=== PATIENT | female | born 1935 | race Caucasian/White ===

== ENCOUNTER 2017-10-11 13:49 | Inpatient (IN) | payer BC ==
[~2017-10-11] VITALS: Ht 154.9 cm; Wt 56.0 kg
--- NOTE | ~2017-10-11 | EKG ---
[place] [address] ELECTROCARDIOGRAM REPORT Name: MICHAEL NAVARRO Room: [address] ADM IN M.R.#: [id number] Admission: 10/11/17 Attend Phys: Cheryl Quinonez MD Discharge: Date of : 37 Report #: [id number] THIS REPORT FOR: //name// [facility] Test Date: 2017-10-13 Test Time: 13:56:45 Pat Name: MICHAEL NAVARRO Department: Room: [address] Gender: F Manager [employer]able [employer]: : 1935 Requested By: Adrian Cook Order Number: [id number] Reading MD: Measurements Intervals [place] Rate: 95 P: MI: QRS: -37 QRSD: 113 T: 3 QT: 374 QTc: 470 Interpretive Statements Atrial fibrillation Incomplete left bundle branch block Low voltage, extremity leads Left ventricular hypertrophy Borderline prolonged QT interval Compared to ECG 10/11/2017 14:51:26 Left bundle-branch block now present Low QRS voltage now present Left ventricular hypertrophy now present Sinus rhythm no longer present ST (T wave) deviation no longer present [email or web address] By: D: [id number] Epiphany Epiphany, /MATILDE
[~2017-10-11 13:49] MED LIST: ASA5UEC PO; ATENOLOL 25 MG25 M1 PO; AZITHROMYCIN 2250 MG PO; BAYER CHEWABLE81 MG PO; CALCIUM + D3 E1 EACH PO; CALCIUM 600 +1 EAC1 PO; CEPHALEXIN; CEPHALEXIN 250250 MG; CEPHALEXIN 500500 M3 PO; FISH OIL 500 M1 EAC1 PO; FLUZONE 2045 MCG/011; HYDROCODON-ACE1 EACH PO; HYDROCODONE PO; LASIX 20 MG TAB20 MG PO; LISINOPRIL5 MG PO; MULTI VITAMIN1 EACH PO; NEURONTIN 300300 M1 PO; OMEPRAZOLE; OMEPRAZOLE 20 MG CAP PO; OSELB75 PO; PNEUMOVAX25 MCG/0.5; QUINU5 PD PO; ROBITUSSIN DM118 ML PO; SIMVASTATIN40 MG PO; TRIAMCINOLONE A80 G2; VICODIN 5-5001 EACH PO
[2017-10-11 13:50] VITALS: BP 129/88
[2017-10-11] MEDS ORDERED: ACCUPRIL10 MG PO (13:56)
[2017-10-11 14:28] LABS: ABSOLUTE LYMPHOCYTES 1.1 thou/uL (0.8-5.3); ABSOLUTE MONOCYTES 0.9 thou/uL (0.0-1.2); ABSOLUTE NEUTROPHILS 7.6 thou/uL (1.6-8.1); BASOPHILS 0.4 %; EOSINOPHILS 0.3 %; HEMATOCRIT 47.5 % (37.0-47.0); HEMOGLOBIN 16.2 gm/dL (12.0-15.0); LYMPHOCYTES 11.2 %; MCH 32.2 pg (26.0-34.0); MCHC 34.1 g/dL (28.0-37.0); MCV 94.4 fL (80.0-100.0); MONOCYTES 9.7 %; MPV 7.7 fl. (7.2-11.1); NUCLEATED RBCS 0 /100WBC; PLATELET COUNT* 195 thou/uL (150-400); POLYS 78.4 %; RBC 5.03 mil/uL (4.20-5.00); RDW-CV 13.6 % (10.5-14.5); WBC 9.6 thou/uL (4.0-11.0)
[2017-10-11 14:40] LABS: ANION GAP 17 mmol/L (7-16); BUN 37 mg/dL (7-18); CALCIUM 10.1 mg/dL (8.5-10.1); CHLORIDE 95 mmol/L (98-107); CO2 22 mmol/L (21-32); GLUCOSE 128 mg/dL (70-99); POTASSIUM 3.7 mmol/L (3.5-5.1); SODIUM 134 mmol/L (136-145)
[2017-10-11 14:46] LABS: ALBUMIN 4.2 g/dL (3.4-5.0); ALKALINE PHOSPHATASE 122 U/L (46-116); LIPASE 336 U/L (73-393); SGOT 26 U/L (15-37); SGPT 18 U/L (30-65); TOTAL BILIRUBIN 1.5 mg/dL (<0.1-1.0); TOTAL PROTEIN 8.4 g/dL (6.4-8.2); TROPONIN-I LEVEL <0.06 ng/mL (<0.06)
[2017-10-11 17:47] VITALS: BP 137/78
[2017-10-11 18:33] VITALS: BP 110/79
--- NOTE | 2017-10-11 18:56 | NUR ---
PT ARRIVED FROM ER AT 1800, ASSISTED TO BED ORIENTED TO SURROUNDINGS VS AND ASSESSMENT STABLE. PT NG TUBE IN PLACE CONTACTED DIAMOND SORTER TO OBTAIN SUCTION. PT DENIED ANY COMPLAINTS. WILL MONITOR.
[2017-10-11 20:00] VITALS: BP 143/94
[2017-10-11 23:33] VITALS: BP 117/83
[2017-10-12 02:42] LABS: URINE BLOOD NEGATIVE (Negative); URINE CLARITY CLEAR; URINE COLOR DARK YELLOW; URINE GLUCOSE-RANDOM NEGATIVE (Negative); URINE KETONES 1+ (Negative); URINE LEUKOCYTES-REFLEX NEGATIVE (Negative); URINE PROTEIN 1+ (Negative); URINE SPECIFIC GRAVITY >= 1.030 (1.005-1.030); URINE UROBILINOGEN 0.2 E.U./dl (0.2-1.0)
[2017-10-12 02:44] LABS: URINE BILIRUBIN 1+ (Negative); URINE NITRITE-REFLEX POSITIVE (Negative)
[2017-10-12 02:45] LABS: ICTOTEST (BILI CONFIRMATORY) Negative (Negative)
[2017-10-12 02:55] LABS: BACTERIA-REFLEX >30 Many /HPF (None Seen); SQUAMOUS 0-3 Few /LPF (0-3); TRANSITIONAL EPITHEL CELL 0-3 Few /LPF (None Seen); URINE RBC 3-10 Few /HPF (0-2); URINE WBC-REFLEX 6-15 Few /HPF (0-5)
[2017-10-12 02:56] LABS: CASTS None Seen /LPF (None Seen); CRYSTALS None Seen /LPF (None Seen); MUCUS 4-6 Moderate strn/LPF (None Seen)
[2017-10-12 05:08] LABS: HEMATOCRIT 44.5 % (37.0-47.0); HEMOGLOBIN 15.1 gm/dL (12.0-15.0); MCH 32.2 pg (26.0-34.0); MCHC 33.9 g/dL (28.0-37.0); MPV 7.8 fl. (7.2-11.1); RBC 4.69 mil/uL (4.20-5.00); RDW-CV 13.5 % (10.5-14.5)
[2017-10-12 05:41] LABS: ALBUMIN 3.7 g/dL (3.4-5.0); CALCIUM 9.1 mg/dL (8.5-10.1); CREATININE 1.1 mg/dL (0.6-1.3); MAGNESIUM 1.8 mg/dL (1.8-2.4); POTASSIUM 3.5 mmol/L (3.5-5.1); TOTAL BILIRUBIN 1.1 mg/dL (<0.1-1.0); TOTAL PROTEIN 7.1 g/dL (6.4-8.2)
--- NOTE | 2017-10-12 05:53 | NUR ---
PATIENT HAS BEEN RESTLESS BUT HAS SLEPT OFF AND ON THROUGHOUT THE NIGHT. NG TUBE IN LEFT NARE TO LOW INTERMITTENT SUCTION WITH DARK COLORED DRAINAGE. PATIENT REMAINS NPO AT THIS TIME. PATIENT HAS BEEN INCONTINENT OF URINE AT NIGHT WHEN SLEEPING. BED LINENS WERE CHANGED AND MORENA CARE PERFORMED. NEW ORDER FROM DR. PEREZ TO HOLD PO MEDS AT THIS TIME D/T LARGE AMOUNT OF DRAINAGE BEING SUCTIONED AT THIS TIME. VSS, ALTHOUGH BP ELEVATED. IV IN LEFT FOREARM-NS @ 75ML/HR. PATIENT INSTRUCTED TO USE CALL LIGHT WHEN NEEDING ASSISTANCE. HOURLY ROUNDS MADE. WILL CONTINUE WITH PLAN OF CARE AND NURSING TO MONITOR.
[2017-10-12 08:00] VITALS: BP 136/80
--- NOTE | 2017-10-12 13:06 | EKG ---
[place] [address] ELECTROCARDIOGRAM REPORT Name: MICHAEL NAVARRO Room: [address] ADM IN .R.#: [id number] Admission: 10/11/17 Attend Phys: Cheryl Quinonez MD Discharge: Date of : 37 Report #: [id number] THIS REPORT FOR: //name// [facility] ED Test Date: 2017-10-11 Test Time: 14:51:26 Pat Name: MICHAEL NAVARRO Department: Room: [facility] Gender: F Investment Representative: : 1935 Requested By: Gerri Zimmer Order Number: [id number] MD: Scott Travis Measurements Intervals [place] Rate: 78 P: 38 TN: 200 QRS: -24 QRSD: 122 T: -11 QT: 446 QTc: 509 Interpretive Statements Sinus rhythm Probable left atrial enlargement nonspecific st changes Compared to ECG 08/07/2017 12:44:20 no change Electronically Signed On 10-12-2017 13:06:14 ACID EXTRACTOR by Scott Travis [email or web address] <ELECTRONICALLY SIGNED> By: Scott Travis MD, [facility] 10/12/17 0200 1451 1451 Scott Travis MD, [facility] /EPI
[2017-10-12 16:00] VITALS: BP 122/86
--- NOTE | 2017-10-12 16:00 | NUR ---
CM SPOKE TO THE PATIENT TO DISCUSS HOME SITUAION, DISCHARGE PLANNING, AND TO INFORM OF THE ROLE OF CM. PATIENT ALERT AND ORIENTED. PATIENT STATES THAT SHE CURRRENTLY RESIDES A [facility] AND IS RECEIVING THERAPY THERE. PATIENT STATES THAT PRIOR TO HER ADMISSION AT [facility] SHE RESIDED AT HOME WITH HER GRANDDAUGHTER. PATIENT USED A CANE OR WALKER AT HOME FOR MOBILITY. PATIENT HAS A HX OF HH WITH [facility]. 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 CM WILL REMAIN AVAILABLE TO ASSIST AND FOLLOW NEEDED.
--- NOTE | 2017-10-12 18:20 | NUR ---
ASSUMED CARE OF PT AT 0730. BEDSIDE REPORT RECIEVED FROM NOC SHIFT NURSE. PT CONTINUES TO BE A&O AND COOPERATIVE. PT HAS HAD NO C/O PAIN OR DISTRESS TODAY. PT VOIDING VIA BEDSIDE COMMODE TODAY AND UP WITH 1 ASSIST. PT HAS BEEN KEPT NPO, VSS. NURSING WILL RIVERA NUE TO MONITOR.
[2017-10-12 20:20] VITALS: BP 122/89
[2017-10-13 00:11] VITALS: BP 134/54
[2017-10-13 04:48] LABS: HEMATOCRIT 41.1 % (37.0-47.0); HEMOGLOBIN 13.9 gm/dL (12.0-15.0); MCH 32.5 pg (26.0-34.0); MCHC 33.9 g/dL (28.0-37.0); MCV 95.8 fL (80.0-100.0); MPV 7.8 fl. (7.2-11.1); RBC 4.29 mil/uL (4.20-5.00); RDW-CV 13.3 % (10.5-14.5); WBC 7.1 thou/uL (4.0-11.0)
--- NOTE | 2017-10-13 05:03 | NUR ---
PATIENT HAS REMAINED ALERT AND ORIENTED X 4 THROUGHOUT THE SHIFT AND RESTING QUIETLY ON HOURLY ROUNDS. PATIENT HAS DENIED ABDOMINAL PAIN OR NAUSEA. NO EMESIS. UP TO BSC WITH ADEQUATE VOIDS. NO BM'S. DOES NOT THINK SHE HAS PASSED ANY GAS. ABDOMEM REMAINS DISTENDED WITH BOWEL SOUNDS PRESENT. VITAL SIGNS STABLE. DR. GILMORE ROUNDED EARLY EVENING. SHE WAS NOT AWARE THAT NGT WAS OUT. VERBAL ORDER TO REPLACE NGT IF PATIENT'S N/V RETURNED. OF THIS WRITING NGT HAS REMAINED OUT. REMAINS NPO. IV FLUIDS PER ORDERS. CONTINUE TO MONITOR. REPEAT ABDOMINAL XRAYS THIS AM HAVE BEEN ORDERED.
[2017-10-13 05:16] LABS: ALBUMIN 3.5 g/dL (3.4-5.0); CALCIUM 8.9 mg/dL (8.5-10.1); CREATININE 0.9 mg/dL (0.6-1.3); POTASSIUM 3.3 mmol/L (3.5-5.1); TOTAL BILIRUBIN 1.1 mg/dL (<0.1-1.0); TOTAL PROTEIN 6.5 g/dL (6.4-8.2)
[2017-10-13 08:33] VITALS: BP 127/79
[2017-10-13 14:35] LABS: CALCIUM 8.4 mg/dL (8.5-10.1); CREATININE 0.9 mg/dL (0.6-1.3); MAGNESIUM 1.7 mg/dL (1.8-2.4)
[2017-10-13 15:30] VITALS: BP 123/64
--- NOTE | 2017-10-13 15:35 | EKG ---
[place] [address] ELECTROCARDIOGRAM REPORT Name: MICHAEL NAVARRO Room: [address] ADM IN .R.#: [id number] Admission: 10/11/17 Attend Phys: Cheryl Quinonez MD Discharge: Date of : 37 Report #: [id number] THIS REPORT FOR: //name// [facility] Test Date: 2017-10-13 Test Time: 13:56:45 Pat Name: MICHAEL NAVARRO Department: Room: [address] Gender: F Top Carrier: : 1935 Requested By: Adrian Cook Order Number: [id number] Radha MD: Scott Travis Measurements Intervals [place] Rate: 95 P: OR: QRS: -37 QRSD: 113 T: 3 QT: 374 QTc: 470 Interpretive Statements Atrial fibrillation Low voltage, extremity leads Borderline prolonged QT interval Compared to ECG 10/11/2017 14:51:26 Low QRS voltage now present Sinus rhythm no longer noted Electronically Signed On 10-13-2017 15:34:58 HAND SEWER SHOES by Scott Travis [email or web address] <ELECTRONICALLY SIGNED> By: Scott Travis MD, FAC 10/13/17 1534 1356 1356 Scott Travis MD, [facility] /EPI
--- NOTE | 2017-10-13 15:38 | NUR ---
ASSUMED CARE OF PATIENT AFTER MORNING REPORT. ALERT AND ORIENTED X4. ASSESSMENT COMPLETED AND IS CHARTED. VSS ON ROOM AIR. PATIENT HAD NO COMPLAINTS OF PAIN OR NAUSEA THIS SHIFT. PATIENT WAS PASSING GAS THEN PROGRESSED TO LIQUID STOOLS. DIET PROGRESSED TO CLEAR LIQUIDS. PATEINT BEGAN DISPLAYING A-FIB HEART RATE AND EKG CONFORMED THIS. PATIENT TRANSFERRED UP TO TELEMETRY UNIT AT 1538. ALL PERSONAL BELONGINGS WENT UPSTAIR WITH PATIENT UPON TRANSFER.
--- NOTE | 2017-10-13 15:56 | NUR ---
RECEIVED REPORT. PT TRANSFERRED TO TELE FOR AFIB. HOWEVER UPON TRANSFER PT IS IN SR WITH PVC. PT ALERT AND ORIENTED X 4. PT ON RA. IVF INFUSING PER ORDERS. PT DENIES ANY COMPLAINTS OF PAIN OR DISCOMFORT. PT DENEIS ANY N/V. PT GIVEN ORAL POTASSIUM AND MAG. PT ORIENTED TO ROOM AND CALL LIGHT. PT COMMUNICATES UNDERSTANDING. CALL LIGHT IS [employer]. WILL CONTINUE TO MONITOR FOR DURAITON OF SHIFT.
--- NOTE | 2017-10-13 18:08 | 2DMMODE ---
[place] [address] 2 D/M-MODE ECHOCARDIOGRAM Name: MICHAEL NAVARRO Room: [address] IN .R.#: [id number] Admission: 10/11/17 Attend Phys: Cheryl Quinonez, Discharge: Date of : 37 Date of Service: 10/13/17 1808 Report #: [id number] THIS REPORT FOR: //name// APPROVED REPORT Study performed: 10/13/2017 17:06:19 EXAM: Comprehensive 2D, Doppler, and color-flow Echocardiogram Patient Location: Bedside BSA: 1.55 HR: 73 bpm BP: 127/79 mmHg Other Information Study Quality: Fair Indications Atrial Fibrillation 2D Dimensions IVSd: 12.19 (7-11mm) LVOT Diam: 20.90 (18-24mm) LVDd: 33.20 mm PWd: 9.98 (7-11mm) Ascending Ao: 30.37 (22-36mm) LVDs: 26.39 (25-40mm) Aortic Root: 25.12 mm Volumes Left Atrial Volume (Systole) LA ESV Index: 32.10 mL/m2 Aortic Valve AoV Peak Charan.: 1.30 m/s AO Peak Gr.: 6.80 mmHg LVOT Max P.92 mmHg AO Mean Gr.: 3.93 mmHg LVOT Mean P.30 mmHg LVOT Max V: 0.85 m/s AO V2 VTI: 22.92 cm LVOT Mean V: 0.52 m/s SHMUEL (VTI): 2.21 cm2 LVOT V1 VTI: 14.79 cm AI [place]: 1.71 m/s2 AI PHT: 738.95 ms Mitral Valve E/A Ratio: 0.87 MV Decel. Time: 277.64 ms MV E Max Charan.: 0.51 m/[place] [address] 2 D/M-MODE ECHOCARDIOGRAM Name: MICHAEL NAVARRO Room: [address] IN [facility]#: [id number] Admission: 10/11/17 Attend Phys: Cheryl Quinonez, Discharge: Date of : 37 Date of Service: 10/13/17 1808 Report #: [id number] MV PHT: 80.52 ms MVA (PHT): 2.73 cm2 TDI E/Lateral E': 8.50 E/Medial E': 10.20 Medial E' Charan.: 0.05 m/s Lateral E' Charan.: 0.06 m/s Pulmonary Valve PV Peak Charan.: 0.97 m/s PV Peak Gr.: 3.76 mmHg Tricuspid Valve RAP Estimate: 5.00 mmHg TR Peak Gr.: 58.17 mmHg RVSP: 63.17 mmHg PA Pressure: 63.17 mmHg Left Ventricle The left ventricle is normal size. There is normal left ventricular wall thickness. Left ventricular systolic function is normal. The left ventricular ejection fraction is within the normal range. LVEF is 50-55%. Grade I - abnormal relaxation pattern. Right Ventricle The right ventricle is normal size. The right ventricular systolic function is normal. Atria Left atrium is mildly dilated. Interatrial septum is not well visualized. The right atrium size is normal. Aortic Valve Aortic valve is calcified. Mild aortic regurgitation. There is no aortic valvular stenosis. Mitral Valve The mitral valve is normal in structure. Trace mitral regurgitation. No evidence of mitral valve stenosis. Tricuspid Valve The tricuspid valve is normal in structure. Mild to moderate tricuspid regurgitation. estimated pulmonary pressure 50 mm Hg Pulmonic Valve The pulmonary valve is normal in structure. [place] [address] 2 D/M-MODE ECHOCARDIOGRAM Name: MICHAEL NAVARRO Room: [address]#: [id number] Admission: 10/11/17 Attend Phys: Cheryl Quinonez, Discharge: Date of : 37 Date of Service: 10/13/17 1808 Report #: [id number] Great Vessels The aortic root is normal in size. IVC is not well visualized. Pericardium There is no pericardial effusion. <Conclusion> LVEF is 50-55%. Aortic valve is calcified. Mild aortic regurgitation. Mild to moderate tricuspid regurgitation. estimated pulmonary pressure 50 mm Hg Left atrium is mildly dilated. <ELECTRONICALLY SIGNED> By: Scott Travis MD, FACC 10/13/171807 07 07 Scott Travis MD, FACC /INF
--- NOTE | 2017-10-13 18:26 | NUR ---
VSS. CARDIAC MONTIORING IN PLACE SR WITH PVC'S. NO AFIB HAS BEEN NOTED. PT REMAINS ON RA. IVF INFUSING PER ORDERS. PT DENIES ANY COMPLAINTS OF PAIN OR DISCOMFORT. PT HAD ONE LOOSE BM THIS EVENING. PT IS UP WITH ASSIST X1 TO BS. PT HAS SOME INCONTINENCE. PT REQUESTS TO WEAR BREIF. PT INFORMED OF PLAN OF CARE. CALLLIGHT IS WITHIN REACH. WILL CONTINUE TO MONTIOR FOR DURATION OF SHFIT.
[2017-10-13 20:00] VITALS: BP 101/64
[2017-10-14] VITALS: BP 102/63
[2017-10-14 03:59] LABS: HEMATOCRIT 36.3 % (37.0-47.0); HEMOGLOBIN 12.3 gm/dL (12.0-15.0); MCH 32.2 pg (26.0-34.0); MCHC 33.9 g/dL (28.0-37.0); MCV 94.9 fL (80.0-100.0); MPV 7.7 fl. (7.2-11.1); RBC 3.82 mil/uL (4.20-5.00); RDW-CV 13.3 % (10.5-14.5); WBC 6.4 thou/uL (4.0-11.0)
[2017-10-14 04:00] VITALS: BP 106/69
[2017-10-14 04:18] LABS: ALBUMIN 2.7 g/dL (3.4-5.0); CALCIUM 8.1 mg/dL (8.5-10.1); CREATININE 0.7 mg/dL (0.6-1.3); MAGNESIUM 1.5 mg/dL (1.8-2.4); POTASSIUM 3.9 mmol/L (3.5-5.1); TOTAL BILIRUBIN 0.8 mg/dL (<0.1-1.0); TOTAL PROTEIN 5.4 g/dL (6.4-8.2)
--- NOTE | 2017-10-14 04:38 | NUR ---
ASSUMED PT CARE AT 1930, PT IS A&OX4, PT IS TRACING NSR ON THE MONITOR, ON RA SATTING MID TO HIGH 90'S, PT DENIES ANY PAIN OR NEEDS AT THIS TIME. PT SLEPT WELL THROUGHOUT THE NIGHT. IVF INFUSING PER MAR. PT IS UP WITH ONE TO THE BSC. PT HAD SEVERAL LOOSE BM'S THIS SHIFT. BED IN LOW POSITION, CALL LIGHT IN REACH, BED ALARM ON, YELLOW ARM BAND AND SOCKS IN PLACE. HOURLY ROUNDING COMPLETED FOR OT SAFETY.
--- NOTE | 2017-10-14 07:25 | NUR ---
CHANGE OF SHIFT, BEDSIDE REPORT GIVEN ASSUMED PATIENT CARE PATIENT SEEN AT BEDSIDE, ASLEEP
[2017-10-14 08:00] VITALS: BP 108/67
[2017-10-14 11:46] VITALS: BP 107/59
[2017-10-14 17:32] VITALS: BP 101/59
--- NOTE | 2017-10-14 18:57 | NUR ---
PATIENT REMAINS A AND O X 4 SB/1ST DEGR LUNGS CTA/DIM/RA SATS MID 90S GOOD APPETITE ABD SOFT/NT TO PALPATE, GOOD BS DIET INCREASED TO FL TODAY AND TOLERATED WELL WILL INCREASE TO REGULAR IN AM MODERATE, LOOSE BM TODAY GOOD UO UP WITH ASSIST TO BSC/CHAIR SCDS BLE WHILE IN BED NO C/O PAIN TODAY IV L FA 20 GA IVF NS AT 75CC/HR CALL LIGHT INSTRUCTION GIVEN AND FOLLOWED BED ALARM ON ABN LABS MAG 1.5, BUN 20 REPLACING MAG IVP. PM SHIFT TO F/U
[2017-10-14 20:00] VITALS: BP 94/57
[2017-10-15] VITALS: BP 94/58
--- NOTE | 2017-10-15 00:59 | NUR ---
RESTING WITHOUT COMPLAINTS. TO ADVANCE DIET IN AM. TOOK PO MEDS WITHOUT DIFFICUTLS. DENIES PAIN OR DISCOMFORT. NO SIGN OF DISTRESS. CONT. WITH CURRENT PLAN OF CARE AT THIS TIME.
[2017-10-15 04:00] VITALS: BP 96/60
[2017-10-15 04:14] LABS: HEMATOCRIT 34.4 % (37.0-47.0); HEMOGLOBIN 11.7 gm/dL (12.0-15.0); MCH 32.3 pg (26.0-34.0); MCHC 33.9 g/dL (28.0-37.0); MCV 95.2 fL (80.0-100.0); MPV 8.3 fl. (7.2-11.1); RBC 3.62 mil/uL (4.20-5.00); RDW-CV 13.5 % (10.5-14.5); WBC 5.5 thou/uL (4.0-11.0)
[2017-10-15 04:18] LABS: CALCIUM 7.9 mg/dL (8.5-10.1); CREATININE 0.7 mg/dL (0.6-1.3); MAGNESIUM 1.7 mg/dL (1.8-2.4); POTASSIUM 4.4 mmol/L (3.5-5.1)
--- NOTE | 2017-10-15 06:06 | NUR ---
PATIENT HAS BEEN AWAKE SINCE 0300 WATCHING TV. STATES TWO DOCTORS CAME IN HER ROOM AND ASKED HER QUESTIONS. TAKING PO WITHOUT DIFFICULTIES. TO ADVANCE DIET FOR BREAKFAST. NO COMPLAINTS. CONT. WITH PLAN OF CARE.
[2017-10-15 08:00] VITALS: BP 97/55
[2017-10-15 12:16] VITALS: BP 108/58
--- NOTE | 2017-10-15 15:00 | CON ---
[address] [address] CONSULTATION Name: RAMONMICHAEL Terry Room: [address] IN M.R.#: [id number] Admission: 10/11/17 Attend Phys: Cheryl Quinonez MD Discharge: Date of : 37 Report #: [id number] THIS REPORT FOR: //name// CC: Cheryl Mcdaniels DO DATE OF SERVICE: 10/13/2017 TYPE OF REPORT: Cardiology consultation. PRIMARY CARE PHYSICIAN: Brittney Mcdaniels D.O. HISTORY OF PRESENT ILLNESS: The patient is an 82-year-old single white female who I was asked to see in the hospital after she was noted to have an abnormal ECG. The patient states she has been followed by Dr. Camilo. She was told in the past had an echocardiogram showed that she had had a previous silent heart attack and that she has a weak heart. She has never had a heart catheterization. She has had a cardiac workup here at [facility]. She actually had a stress test back in 2011 when she was in the hospital here that showed evidence of previous inferior scar, but no reversible ischemia. Echocardiogram at that time showed an ejection fraction 45% with apical hypokinesis. Her last echocardiogram in July of this year showed an ejection fraction of lower limits of normal with aortic sclerosis, mild aortic insufficiency, mild mitral regurgitation, mild tricuspid insufficiency And pulmonary artery pressure 70 mmHg. The patient apparently was admitted here to [place] in July after she fell and broke her hip. She had hip surgery and is now at [facility] where she is undergoing rehabilitation. Unfortunately, the patient recently has had abdominal pain and vomiting. She has had loose stools. She was finally brought to the emergency room 2 days ago. She was felt to have a small-bowel obstruction. General surgery was consulted and they recommended to have medical therapy. The patient's small-bowel obstruction apparently has resolved. On the monitor, she appeared to have an episode of atrial fibrillation. I was asked to see her for further evaluation and treatment. PAST MEDICAL HISTORY: Otherwise significant for appendectomy and hysterectomy. She has a history of hypertension. MEDICATIONS: On admission consisted of Lasix, quinapril, atenolol, omeprazole, simvastatin, aspirin and Neurontin. ALLERGIES: She has no known drug allergies. FAMILY HISTORY: [place] [address] CONSULTATION Name: MICHAEL NAVARRO Terry Room: [address] IN [facility]#: [id number] Admission: 10/11/17 Attend Phys: Cheryl Quinonez MD Discharge: Date of : 37 Report #: [id number] SOCIAL HISTORY: She is , lives in [place]. No smoking or alcohol use. REVIEW OF SYSTEMS: She has had a history of stroke, asthma, peptic ulcer disease, liver disease, kidney disease, cancer and psychiatric illness. She does have arthritis. She wears glasses. PHYSICAL EXAMINATION: GENERAL: Elderly, frail appearing female who was lying in bed. She appeared in no distress. VITAL SIGNS: Showed a blood pressure 120/80, pulse 70 and she is afebrile. HEENT: She was anicteric. Conjunctivae pink. Mucous members appear moist. NECK: Veins nondistended. CHEST: Clear to auscultation. CARDIAC: Regular rate and rhythm. Grade 2 holosystolic murmur at the apex. ABDOMEN: Soft and nontender. EXTREMITIES: Had no edema. Dorsalis pedis pulse 2+ bilaterally. SKIN: Cool and dry. NEUROLOGICAL: Nonfocal. RADIOLOGICAL DATA: Her ECG on admission 2 days ago showed a sinus rhythm and nonspecific T-wave changes. She had an electrocardiogram done this afternoon that appears to show atrial fibrillation with a controlled ventricular response rate and again nonspecific ST-segment changes. She currently appears to be back in the sinus rhythm. Her workup, she had a lab work that included sodium 145, potassium 3.0, BUN 31 and creatinine 0.9. Liver function studies were normal. Troponin 0.06. T4 1.6. White blood cell count 7.1 and hemoglobin 13.9. IMPRESSION AND RECOMMENDATIONS: 1. Paroxysmal atrial fibrillation. I would recommend resuming the patient's beta job and angiotensin-converting enzyme inhibitor. She does not appear to be a very good candidate for anticoagulation. If she has recurrent atrial fibrillation, we would consider antiarrhythmic therapy. 2. Evidence of previous myocardial infarction. No recent angina. 3. Mild cardiomyopathy. The patient has been on a beta job and angiotensin-converting enzyme inhibitor. 4. History of hypertension. 5. Degenerative joint disease. 6. Recent hip fracture. 7. Recent small-bowel obstruction. Appears to resolve. <ELECTRONICALLY SIGNED> By: Scott Travis MD, FACC 10/15/17 1500 1623 [id number] Travis MD, FACC /nt
[2017-10-15 15:35] VITALS: BP 115/68
--- NOTE | 2017-10-15 18:51 | NUR ---
I ASSUMED CARE OF THE PATIENT AT 0700. SHE IS ALERT AND ORIENTED X4. BED IS IN THE LOW LOCKED POSITION AND CALL LIGHT IS IN REACH. BED ALARM IS ON. SHE IS UP WITH ASSIST X1 TO THE BSC. HOURLY ROUNDING WAS COMPLETED. PATIENT NEEDS WERE MET AND PAIN WAS MANAGED. PATIENT IS PROGRESSING TOWARD HER GOALS. SHE LOOKS FORWARD TO DISCHARGE ON MONDAY. MAGNESIUM WAS REPLACED AND LABS WERE REDRAWN. DIET WAS ADVANCED, SKIN IS INTACT. WILL CONTINUE TO MONITOR.
[2017-10-15 20:00] VITALS: BP 126/78
[2017-10-16 00:43] VITALS: BP 155/83
[2017-10-16 04:06] VITALS: BP 137/80
--- NOTE | 2017-10-16 05:30 | NUR ---
PT CARE ASSUMED AFTER REPORT. ASSESSMENT COMPLETE. SR/SB/1ST DEGREE ON MONITOR. IVF INFUSING. UP TO BSC WITH ASSIST. DENIES PAIN. REPORST SHE FEELS BETTER. FALL PRECAUTIONS IN PLACE INCLUDING BED ALARM. CALL LIGHT IN REACH. BED IN LOWEST POSITION. PROGRESSING TOWARDS GOALS.
[2017-10-16 08:35] VITALS: BP 133/73
[2017-10-16 11:59] VITALS: BP 126/69
[2017-10-16 16:49] VITALS: BP 114/63
--- NOTE | 2017-10-16 17:04 | NUR ---
ALERT AND ORIENTED X4. UP WITH ASSIST X1 TO THE COMMODE. IV IS PATENT AND INFUSING. DENIES PAIN AND NAUSEA. PATIENT HAS BEEN TOLERATING DIET THROUGHOUT SHIFT. VSS ON ROOM AIR. HOURLY ROUNDS HAVE BEEN MAINTAINED THROUGHOUT SHIFT. CALL LIGHT IS WITHIN REACH. NURSING WILL CONTINUE TO MONITOR.
[2017-10-16 20:00] VITALS: BP 106/58
[2017-10-17 00:13] VITALS: BP 100/56
[2017-10-17 04:17] VITALS: BP 103/56
--- NOTE | 2017-10-17 05:07 | NUR ---
PT CARE ASSUMED AFTER REPORT. ASSESSMENT COMPLETE. SB/1ST DEGREE ON MONITOR. UP WITH MIN ASSIST TO BEDSIDE COMMODE. DENIES PAIN. IVF INFUSING WELL. FALL PRECAUTIONS IN PLACE INCLUDING BED ALARM. CLL LIGHT IN REACH. BED IN LOWEST POSITION. PROGRESSING TOWARDS GOALS.
--- NOTE | 2017-10-17 08:55 | NUR ---
ORDERS NOTED FOR DC BACK TO [facility]. CALLED AND FAXED DC ORDER TO M[facility]. THEY WILL NEED PT/OT NOTES IN ORDER TO OBTAIN AUTH FOR [facility]. CHINO TO COME OVER TO DISCUSS WITH PT SHE MAY HAVE COPAYS. ORDER IN FOR PT/OT. DISCUSSED WITH DONALD ORELLANA
[2017-10-17 09:00] VITALS: BP 96/46
--- NOTE | 2017-10-17 09:00 | NUR ---
ASSUMED PT. CARE AND RECEIVED REPORT AT 0730. PT A/OX4, VSS, MONITOR ON TRACING SB. PT. DENIES CURRENT PAIN/SOB. ON RA @ 98%. FULL ASSESSMENT COMPLETED, REFER TO CHARTING. PT. ANTICIPATES DC, AND STATES SHE FEESL SHE IS READY. PT. SET UP FOR BREAKFAST, CALL LIGHT IN REACH, WILL CONTINUE WITH PLAN OF CARE.
--- NOTE | 2017-10-17 09:23 | NUR ---
[facility] PRIOR AUTH'D THRU MEDICAID FOR 15MG BID X21 DAYS AND THEN 20MG DAILIY FOR 6 MONTHS. CALLED INTO [employer] [phone] AND COPAY IS $2.00 SHOULD BE FILLED AND READY FOR PT. DISCUSSED WITH MATTHEW/PATIENT SERVICE SPECIALIST
[2017-10-17 11:59] VITALS: BP 97/53
[2017-10-17 16:44] VITALS: BP 101/58
--- NOTE | 2017-10-17 18:01 | NUR ---
PT. STABLE THROUGH OUT SHIFT. WORKED WITH THERAPY AND UP TO CHAIR FOR APPROX 1 HOUR. PT. DAUGHTER HERE AND SET UP PAYMENT WITH [facility] FOR INSURANCE COPAY. ANTICIPATE INSURANCE AUTH. TOMORROW. PT. STATES FROM THE [facility] HER FAMILY HAS FOUND A PLACE AT THE [facility] FOR HER TO RESIDE POST THERAPY.
[2017-10-17 20:00] VITALS: BP 106/57
[2017-10-18] VITALS (7 sets, daily range): BP systolic 85–123; BP diastolic 43–65
--- NOTE | 2017-10-18 02:38 | NUR ---
SLEEPING. UP TO COMMODE. BM X 1 THIS SHIFT. DENIES PAIN OR DISCOMFORT, NO SIGN OF DISTRESS. D/C TO [facility] IN AM. PATIENT IS ANXIOUS TO GET D/C FROM HOSPITAL. CONT. WITH BED IN LOW POSITION, CALL LIGHT IN REACH. CONT. WITH PLAN OF CARE AT THIS TIME.
--- NOTE | 2017-10-18 10:19 | NUR ---
ASSUMED PT CARE AT 0730, FULL ASSESMENT DONE CHARTED.PT A/O X4, DENIES PAIN, SB/1ST AVB ON THE MONITOR. VSS, BM THIS AM. PT HOPING TO FIND OUT IF SHE CAN GO TO [facility] TODAY. PT UP TO CHAIR FOR BREAKFAST, FALL PRECATUIONS IN PLACE, SHE USES THE CALL LIGHT APPROPRIALTY. WILL CONTINUE WITH PLAN OF CARE.
--- NOTE | 2017-10-18 12:15 | NUR ---
CONTINUE TO WAIT ON INSURANCE AUTH FOR SNF. DISCUSSED WITH MARY/[facility] DELLA FRANCIS. DR CHAVEZ UPDATED
[2017-10-18] MEDS ORDERED: HYDROCODONE-AP1 EAC6 PO (15:06)
[2017-10-18] MEDS ORDERED: SENNA8.6 MG PO (15:09)
[2017-10-18] MEDS ORDERED: MIRALAX17 GM PO (15:09)
[2017-10-18] MEDS ORDERED: CEFUROXIME250 MG PO (15:11)
[2017-10-19] VITALS: BP 94/50
--- NOTE | 2017-10-19 01:37 | NUR ---
PATIENT RESTING WITHOUT COMPLAINTS. UP TO BS WITH SBA. PATIENT WAITING APPROVAL TO RETURN TO [facility] FOR REHAB. HAS BEEN ACCEPTED TO ASSIST LIVING. ALERT AND ORIENTED X 4. DENIES COMPLAINTS. NO SIGN OF DISTRESS OR DISCOMFORT AT THIS TIME.
[2017-10-19 08:00] VITALS: BP 107/70
--- NOTE | 2017-10-19 09:26 | NUR ---
PER [facility], THEY HAVE INSURANCE AUTH AND CAN ACCEPT PT TODAY. ORDERS HAD ALREADY BEEN FAXED. UPDATED DR CHAVEZ. CHART COPIED. PRASADRN HAS NUMBER TO CALL REPORT. MARY SET UP W/C VAN FOR 113. WILL UPDATE PT AND FAMILY
[2017-10-19 09:52] VITALS: BP 107/70
--- NOTE | 2017-10-19 10:13 | NUR ---
ASSUMED CARE OF PT AT 0730. PT RESTING IN BED WAITING FOR BREAKFAST. PT A&0X4. DENIES ANY PAIN OR SHORTNESS OF BREATH AT THIS TIME. PT STATES SHE HOPES INSURANCE AUTHORIZES HER TO RETURN TO [facility] TODAY. PT TRACING SB WITH FIRST DEGREE ON THE INFORMATION MANAGEMENT SPECIALIST. ON RA SAT 96%. PT UP WITH 1 ASSIST BSC. PT HAD BOWEL MOVEMENT THIS AM. IVF. VSS. PT WORKED WITH PHYSICAL THERAPY THIS AM. TOLERATED WELL. PT GOAL FOR TODAY IS TO TRANSFER TO [facility] FOR CONTINUED THERAPY PENDING INSURANCE AUTHORIZATION. AM ASSESSMENT CHARTED. MEDICATIONS PER DEC. PT REPOSITIONS SELF IN BED WITH REMINDERS. HOURLY ROUNDING OBSERVED. BED IN LOW POSITION. BED ALARM IN PLACE. FALL PRECAUTIONS IN PLACE. CALL LIGHT WITHIN REACH. WILL CONTINUE PLAN OF CARE.
--- NOTE | 2017-10-19 11:30 | NUR ---
DISCHARGE ORDERS RECEIVED. AUTHORIZATION RECEIVED AND OK TO DISCHARGE TO [facility]. DISCHARGE INSTRUCTIONS, CARE NOTES, SCRIPTS AND FOLLOW UP APPTS COPIED AND PLACED IN FOLDER FOR TRANSPORTER. IV AND DESKTOP OPERATOR REMOVED. PT DISCHARGED WITH ALL BELONGINGS AND PAPERWORK VIA WHEELCHAIR VAN SERVICE. REPORT CALLED TO AT [facility].
--- NOTE | 2017-10-24 16:26 | CON ---
[address] [address] CONSULTATION Name: MICHAEL NAVARRO Room: [address] IN .R.#: [id number] Admission: 10/11/17 Attend Phys: Cheryl Quinonez MD Discharge: 10/19/17 Date of : 37 Report #: [id number] THIS REPORT FOR: //name// CC: Cheryl Quinonez Brittney Enedelia DATE OF SERVICE: 10/14/2017 REASON FOR CONSULT: Small-bowel obstruction, nausea, vomiting. REQUESTING PHYSICIAN: Dr. Cheryl Qiunonez. HISTORY OF PRESENT ILLNESS: This is an 82-year-old female with symptoms of abdominal pain, distention, nausea, vomiting, which prompted her to come to hospital after suffering from it for several days. Since hospitalization, she had a CT of abdomen and pelvis which revealed possibility of mechanical obstruction with dilation of the small bowel to 5 cm. Subsequently, the patient had a NG tube in place and followup KUB revealed mild improvement. Starting last night, the patient reports that she had bowel movements, and she has had several bowel movements since yesterday including this morning. She denies any hematochezia or melena. She also denies any further symptoms of nausea, vomiting and is able to tolerate liquid diet. The KUB this morning shows mild dilation of the small bowel suggestive of mild ileus. 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 ALLERGIES: No known drug allergy. MEDICATIONS: Please refer to hospital [facility]. SOCIAL HISTORY: The patient denies tobacco and alcohol use. FAMILY HISTORY: Noncontributory. PHYSICAL EXAMINATION: VITAL SIGNS: Reveals blood pressure of 106/69, respirations 18, pulse 62, temperature 98.2. LUNGS: Clear. CARDIOVASCULAR: Regular. ABDOMEN: Soft, mildly distended. Bowel sounds are positive. It is nontender. NEUROLOGIC: The patient is alert, oriented x 3. [place] [address] CONSULTATION Name: MICHAEL NAVARRO Room: [address]#: [id number] Admission: 10/11/17 Attend Phys: Cheryl Quinonez MD Discharge: 10/19/17 Date of : 37 Report #: [id number] LABORATORY DATA: Reveals sodium of 142, potassium 3.9, BUN is 20, creatinine 0.7, glucose 97. Liver function tests are all within normal limits. Calcium is 8.1, magnesium 1.5, total protein is 5.4. WBC 6.4, with hemoglobin of 12.3 and platelet of 114. IMAGING: As discussed above. ASSESSMENT AND PLAN: The patient with small-bowel obstruction, which seemed to have resolved. She is currently having bowel movements and denies nausea and reports tolerating liquids without any problem. We will continue to monitor her and consider advancing her diet later today. If she develops further symptoms of nausea, we may consider motility agents. <ELECTRONICALLY SIGNED> By: Norma Pham MD 10/24/17 1626 0827 [id number] Pham MD /nt
== END 2017-10-19 11:35 | DRG 389 ==
LOC: M.ERS 13:49 → M.TBA-ER 16:22 → M.ORTHSURG 16:22 → M.2W 10-13 15:37
PROVIDERS: Family Medicine; Nurse Practitioner Family; ADMIT Internal Medicine
PROC: 0D9670Z Drainage of Stomach with Drainage Device, Via Natural or Artificial Opening (ICD-10-PCS; principal; 2017-10-11)
DX: K56.609 Unspecified intestinal obstruction, unspecified as to partial versus complete obstruction (principal); M80.00XA Age-related osteoporosis with current pathological fracture, unspecified site, initial encounter for fracture; N39.0 Urinary tract infection, site not specified; I48.0 Paroxysmal atrial fibrillation; M19.90 Unspecified osteoarthritis, unspecified site; E78.5 Hyperlipidemia, unspecified; I11.0 Hypertensive heart disease with heart failure; I25.10 Atherosclerotic heart disease of native coronary artery without angina pectoris; K21.9 Gastro-esophageal reflux disease without esophagitis; I50.9 Heart failure, unspecified; R79.89 Other specified abnormal findings of blood chemistry; E87.6 Hypokalemia; B96.20 Unspecified Escherichia coli [E. coli] as the cause of diseases classified elsewhere; Z28.21 Immunization not carried out because of patient refusal; Z90.49 Acquired absence of other specified parts of digestive tract; Z90.710 Acquired absence of both cervix and uterus; Z82.49 Family history of ischemic heart disease and other diseases of the circulatory system; I25.2 Old myocardial infarction; Z79.899 Other long term (current) drug therapy; Z79.82 Long term (current) use of aspirin

== ENCOUNTER 2018-01-12 03:56 | Inpatient (IN) | payer BC ==
[~2018-01-12] VITALS: Ht 154.9 cm; Wt 65.3 kg
[~2018-01-12 03:56] MED LIST changes: +ACCUPRIL10 MG PO; +CEFUROXIME250 MG PO; +HYDROCODONE-AP1 EAC6 PO; +MIRALAX17 GM PO; +SENNA8.6 MG PO
[2018-01-12 04:00] VITALS: BP 123/51
[2018-01-12 04:57] LABS: ABSOLUTE EOSINOPHILS 0.1 thou/uL (0.0-0.7); ABSOLUTE MONOCYTES 0.7 thou/uL (0.0-1.2); ABSOLUTE NEUTROPHILS 2.7 thou/uL (1.6-8.1); BASOPHILS 0.6 %; EOSINOPHILS 3.1 %; HEMATOCRIT 33.1 % (37.0-47.0); HEMOGLOBIN 11.3 gm/dL (12.0-15.0); LYMPHOCYTES 21.1 %; MCHC 34.1 g/dL (28.0-37.0); MCV 93.9 fL (80.0-100.0); MONOCYTES 15.4 %; NUCLEATED RBCS 0 /100WBC; PLATELET COUNT* 100 thou/uL (150-400); POLYS 59.8 %; RBC 3.53 mil/uL (4.20-5.00); RDW-CV 13.6 % (10.5-14.5); WBC 4.6 thou/uL (4.0-11.0)
[2018-01-12 05:08] LABS: POTASSIUM 4.4 mmol/L (3.5-5.1)
[2018-01-12 05:18] LABS: TOTAL BILIRUBIN 0.6 mg/dL (<0.1-1.0); TOTAL PROTEIN 6.3 g/dL (6.4-8.2)
[2018-01-12 06:29] LABS: URINE BILIRUBIN NEGATIVE (Negative); URINE BLOOD NEGATIVE (Negative); URINE CLARITY CLEAR; URINE COLOR YELLOW; URINE GLUCOSE-RANDOM NEGATIVE (Negative); URINE KETONES NEGATIVE (Negative); URINE LEUKOCYTES-REFLEX NEGATIVE (Negative); URINE NITRITE-REFLEX NEGATIVE (Negative); URINE PROTEIN NEGATIVE (Negative); URINE SPECIFIC GRAVITY <= 1.005 (1.005-1.030)
--- NOTE | 2018-01-12 07:37 | NUR ---
REPORT TAKEN ON PATIENT. RESTING COMFORTABLY AND TRANSPORT TOOK PATIENT FOR ULTRASOUND. PATIENT IS URINATING CONSTANTLY AND HAS AGREED TO A TAN AFTER TESTING.
[2018-01-12 08:48] VITALS: BP 120/56
--- NOTE | 2018-01-12 09:00 | NUR ---
PT ARRIVED TO ROOM 117 VIA CART. ORIENTED TO ROOM AND UNIT,CALL LIGHT WITHIN IN REACH. DAUGHTER AT BS
--- NOTE | 2018-01-12 11:05 | EKG ---
[place] [address] ELECTROCARDIOGRAM REPORT Name: MICHAEL NAVARRO Room: [address] IN [facility].#: [id number] Admission: 01/12/18 Attend Phys: Cheryl Quinonez MD Discharge: Date of : 37 Report #: [id number] THIS REPORT FOR: //name// [facility] ED Test Date: 2018-01-12 Test Time: 04:15:36 Pat Name: MICHAEL NAVARRO Department: Room: [facility] Gender: F Psychologist Research Assistant: KAILEY Daniel : 1935 Requested By: Jennifer Guido Order Number: [id number] MD: Nile Spear Measurements Intervals [place] Rate: 53 P: 0 IL: 238 QRS: 0 QRSD: 128 T: -5 QT: 423 QTc: 398 Interpretive Statements Sinus rhythm pvc Prolonged [place] interval Probable left atrial enlargement Nonspecific intraventricular conduction delay Anteroseptal infarct, old Borderline repolarization abnormality Artifact in lead(s) I,II,III,aVR,aVL,aVF Electronically Signed On 01-12-2018 11:04:52 CDT by Nile Spear [email or web address] <ELECTRONICALLY SIGNED> By: Nile Spear MD, FACC 01/12/18 1104 0415 0415 Nile Spear MD, FACC /EPI
--- NOTE | 2018-01-12 12:31 | NUR ---
ASSUMED CARE OF PATIENT AT 1100. REPORT RECEIVED FROM Poli PICKARD RN. AGREE WITH PREVIOUS ASSESSMENT. BILATERAL LEGS SWOLLEN, ELEVATED ON PILLOWS. TAN PATENT AND DRAINING YELLOW URINE. DENIES ANY NEEDS AT THIS TIME. CALL LIGHT WITHIN REACH. WILL CONTINUE WITH PLAN OF CARE.
[2018-01-12 16:00] VITALS: BP 118/75
--- NOTE | 2018-01-12 17:19 | 2DMMODE ---
[place] [address] 2 D/M-MODE ECHOCARDIOGRAM Name: MICHAEL NAVARRO Room: [address] IN [facility]#: [id number] Admission: 01/12/18 Attend Phys: Cheryl Quinonez, Discharge: Date of : 37 Date of Service: 01/12/18 1719 Report #: [id number] THIS REPORT FOR: //name// APPROVED REPORT Study performed: 01/12/2018 15:52:38 EXAM: Comprehensive 2D, Doppler, and color-flow Echocardiogram Patient Location: In-Patient Room #: [facility] Status: routine BSA: 1.64 HR: 66 bpm BP: 120/56 mmHg Rhythm: NSR Other Information Study Quality: Good Indications Congestive Heart Failure 2D Dimensions LVEF(%): 56.49 (>50%) IVSd: 12.65 (7-11mm) LVOT Diam: 21.83 (18-24mm) LVDd: 39.62 mm PWd: 10.26 (7-11mm) Ascending Ao: 33.90 (22-36mm) LVDs: 28.08 (25-40mm) Aortic Root: 31.14 mm Ortega's LVEF: 56.49 % Volumes Left Atrial Volume (Systole) LA ESV Index: 32.10 mL/m2 Aortic Valve AoV Peak Charan.: 1.61 m/s AO Peak Gr.: 10.33 mmHg LVOT Max P.68 mmHg AO Mean Gr.: 5.88 mmHg LVOT Mean P.71 mmHg LVOT Max V: 0.96 m/s AO V2 VTI: 34.64 cm LVOT Mean V: 0.60 m/s SHMUEL (VTI): 2.26 cm2 LVOT V1 VTI: 20.91 cm AI Hardin: 0.83 m/s2 AI PHT: 1183.93 [place] [address] 2 D/M-MODE ECHOCARDIOGRAM Name: MICHAEL NAVARRO Room: [address]#: [id number] Admission: 01/12/18 Attend Phys: Cheryl Quinonez, Discharge: Date of : 37 Date of Service: 01/12/18 1719 Report #: [id number] Mitral Valve E/A Ratio: 0.60 MV Decel. Time: 337.73 ms MV E Max Charan.: 0.50 m/s MV PHT: 97.94 ms MVA (PHT): 2.25 cm2 TDI E/Lateral E': 4.17 E/Medial E': 8.33 Medial E' Charan.: 0.06 m/s Lateral E' Charan.: 0.12 m/s Pulmonary Valve PV Peak Charan.: 0.96 m/s PV Peak Gr.: 3.71 mmHg Tricuspid Valve TR Peak Gr.: 55.30 mmHg RVSP: 60.00 mmHg Left Ventricle The left ventricle is normal size. There is normal LV segmental wall motion. There is normal left ventricular wall thickness. Left ventricular systolic function is normal. LVEF is 55-60%. Grade I - abnormal relaxation pattern. Right Ventricle Right ventricle is moderately dilated. The right ventricular systolic function is normal. Atria Left atrium is moderately dilated. Right atrium is moderately dilated. Aortic Valve The Aortic valve is sclerotic. Mild aortic regurgitation. There is no aortic valvular stenosis. Mitral Valve The mitral valve is normal in structure. Mild mitral regurgitation. No evidence of mitral valve stenosis. Tricuspid Valve The tricuspid valve is normal in structure. Moderate tricuspid regurgitation. The RVSP is 70 mmHg. Pulmonic Valve The pulmonary valve is normal in structure[place] [address] 2 D/M-MODE ECHOCARDIOGRAM Name: MICHAEL NAVARRO Room: [address] IN [facility]#: [id number] Admission: 01/12/18 Attend Phys: Cheryl Quinonez, Discharge: Date of : 37 Date of Service: 01/12/18 1719 Report #: [id number] regurgitation. Great Vessels The aortic root is normal in size. IVC is normal in size and collapses <50% with inspiration. Pericardium There is no pericardial effusion. <Conclusion> The left ventricle is normal size. There is normal left ventricular wall thickness. Left ventricular systolic function is normal. LVEF is 55-60%. Grade I - abnormal relaxation pattern. Right ventricle is moderately dilated. Left atrium is moderately dilated. Right atrium is moderately dilated. The Aortic valve is sclerotic. Mild aortic regurgitation. Mild mitral regurgitation. Moderate tricuspid regurgitation. The RVSP is 70 mmHg. IVC is normal in size and collapses <50% with inspiration. <ELECTRONICALLY SIGNED> By: Jun Del Real MD, FACC 01/12/181718 18 18 Jun Del Real MD, FACC /INF
--- NOTE | 2018-01-12 18:44 | NUR ---
PATIENT HAS BEEN A/O X 4 THIS SHIFT. HAS DENIED THE NEED FOR PAIN MEDS. HAS HAD GOOD DIURESIS FROM LASIX RECEIVED IN ER. TAN PATENT AND DRAINING YELLOW URINE. PATIENT REPOSITIONED EVERY 2 HOURS AND HEELS ELEVATED, HEELS SLIGHTLY BOGGY NO BREAKDOWN NOTED. PATIENT HAD ECHO COMPLETED THIS SHIFT. PT/OT ORDERED. PATIENT TO HAVE LUMBAR XRAY. FALL PRECAUTIONS IN PLACE. HOURLY ROUNDING COMPLETED. CALL LIGHT WITHIN REACH. WILL CONTINUE WITH PLAN OF CARE.
[2018-01-12 21:15] VITALS: BP 128/68
[2018-01-13 00:45] VITALS: BP 111/54
--- NOTE | 2018-01-13 06:22 | NUR ---
ALERT AND ORIENTED X4. REMAINS ON BEDREST. TURNED EVERY 2 HOURS WITH HEELS ELEVATED OFF BED. 3+PITTING EDEMA TO LOWER EXTREMITIES PRIOR TO LASIX BEING GIVEN. LARGE URINE OUTPUT NOTED IN TAN CATHETER AFTER LASIX GIVEN. URINE CLEAR YELLOW IN COLOR. CALL LIGHT WITHIN REACH.
--- NOTE | 2018-01-13 06:25 | NUR ---
ORDER RECEIVED FOR "OT EVALUATION AND TREATMENT". PLAN TO DEFER TO PHYSICAL THERAPY AT THIS TIME.
[2018-01-13 08:11] VITALS: BP 128/78
--- NOTE | 2018-01-13 15:00 | NUR ---
MET WITH AND DTR/NOBLE TO DISCUSS HOME SITUATION/DC PLANNING. PT AND GRANDDTR/MARIELYIN LIVE TOGETHER. PT IS NORMALLY ABLE TO AMBULATE IN THE HOUSE WTIH HER WALKER. SHE CAN GET A MEAL TOGETHER WHILE HER GRDDTR WORKS DURING THE DAY. PT CAN DO HER OWN ADLS. RECENTLY HAS NOT BEEN ABLE TO AMBULATE, STATES THINKS IT 'MAY BE MY BACK.' PT HAS WALKER AND WALKER WITH SEATS, CANES, TOILET RISER AND BATH BENCH. SHE HAS HAD HH WITH [facility] IN THE PAST AND BEEN TO [facility] FOR SNF. DTR ASKED ABOUT ASSISTING LIVING, DISCUSSED AND GAVE INFO. NOT SURE WHAT PT'S DC NEEDS WILL BE AT THIS TIME, SHE IS OPEN TO SNF IF NEEDED. WILL FOLLOW
[2018-01-13 16:00] VITALS: BP 114/55
--- NOTE | 2018-01-13 17:04 | NUR ---
ASSUMED CARE OF PATIENT AFTER MORNING REPORT. ALERT AND ORIENTED X4. ASSESSMENT COMPLETED AND CHARTED. VSS ON ROOM AIR. PATIENT HAS HAD NO COMPLAINTS OF PAIN OR NAUSEA THIS SHIFT. TAN REMAINS IN PLACE, IS PATENT AND DRAINING INDEPENDENTLY. PATIENT HAD A BATH TODAY AND IS RESTING COMFORTABLY IN BED AT THIS TIME. HOURLY ROUNDS MAINTAINED. CALL LIGHT WITHIN REACH. NURSING WILL CONTINUE TO MONITOR.
[2018-01-13 21:30] VITALS: BP 132/73
--- NOTE | 2018-01-14 04:53 | NUR ---
PATIENT HAS REMAINED ALERT AND ORIENTED X 4 THROUGHOUT THE SHIFT AND RESTING QUIETLY ON HOURLY ROUNDS. ASSIST WITH REPOSTION Q2H. LE'S ELEVATED UP ON PILLOW. HAS DENIED NEED FOR PAIN MEDICATION. VITAL SIGNS STABLE. CONTINUE TO MONITOR.
[2018-01-14 10:30] VITALS: BP 118/59
[2018-01-14 15:10] LABS: HEMATOCRIT 40.9 % (37.0-47.0); MCH 31.9 pg (26.0-34.0); MCHC 34.1 g/dL (28.0-37.0); MCV 93.6 fL (80.0-100.0); MPV 8.1 fl. (7.2-11.1); RBC 4.37 mil/uL (4.20-5.00); RDW-CV 13.9 % (10.5-14.5); WBC 6.4 thou/uL (4.0-11.0)
[2018-01-14 15:12] LABS: HEMOGLOBIN 13.9 gm/dL (12.0-15.0)
[2018-01-14 15:16] LABS: CALCIUM 9.2 mg/dL (8.5-10.1); CREATININE 1.1 mg/dL (0.6-1.3); MAGNESIUM 1.9 mg/dL (1.8-2.4); POTASSIUM 3.9 mmol/L (3.5-5.1)
[2018-01-14 16:00] VITALS: BP 111/68
--- NOTE | 2018-01-14 16:03 | NUR ---
ASSUMED PT CARE AT 0700 PT IS ALERT AND ORIENTED X 4 PT IS A FALL RISK BED AND CHAIR ALARMS ARE ON, PT DENIES PAIN OR SOA, PT IS UP WITH ASSIST X 2 PT HAS WEAKNESS, PT IS PLEASANT AND COOPERATIVE PT IS UP IN CHAIR, PT HGB REDRAW WENT FROM 11.3 TO 13.9 LAB NOTIFIED NURSE, WILL CONTINUE TO MONITOR
[2018-01-14 20:00] VITALS: BP 122/72
[2018-01-15 00:55] VITALS: BP 114/70
[2018-01-15 04:49] LABS: HEMATOCRIT 38.1 % (37.0-47.0); HEMOGLOBIN 13.1 gm/dL (12.0-15.0); MCH 31.7 pg (26.0-34.0); MCHC 34.3 g/dL (28.0-37.0); MCV 92.4 fL (80.0-100.0); MPV 8.4 fl. (7.2-11.1); RBC 4.13 mil/uL (4.20-5.00); RDW-CV 13.7 % (10.5-14.5); WBC 5.7 thou/uL (4.0-11.0)
[2018-01-15 05:06] LABS: CALCIUM 8.8 mg/dL (8.5-10.1); CREATININE 1.1 mg/dL (0.6-1.3); POTASSIUM 3.9 mmol/L (3.5-5.1)
--- NOTE | 2018-01-15 05:20 | NUR ---
ALERT AND ORIENTED X4. REPOSITIONED/TURNED EVERY 2 HOURS. UP WITH 2 ASSIST, GAIT BELT AND WALKER. NO EDEMA NOTED TO LOWER EXTREMITIES. DENIED NEED FOR PAIN MEDICATION. TAN CATHETER PATENT WITH CLEAR YELLOW URINE. CALL LIGHT WITHIN REACH. PROGRESSING TOWARD DISCHARGE GOAL.
--- NOTE | 2018-01-15 07:25 | NUR ---
CHANGE OF SHIFT REPORT GIVEN PATIENT SEEN AT BEDSIDE, IN BED ASLEEP
[2018-01-15 08:00] VITALS: BP 104/60
--- NOTE | 2018-01-15 15:34 | NUR ---
CM SPOKE TO THE PATIENT TO DISCUSS DISCHARE PLANNING NEEDS AND CHOICE OF SNF. PATIENT CHOSE [facility] SHE HAS BEEN THERE BEFORE. CM SPOKE TO HERNANDEZ AT [facility] AND SHE CONFIRMS THAT THE PATIENT HAS BEEN TO THE FACILITY FOR SKILLED RECENTLY. CM FAXED REFERRAL TO [facility], AND WILL NEED TO FAX PT NOTES WHEN AVAILABLE. CM WILL REMAIN AVAILABLE TO ASSIST AND FOLLOW NEEDED.
[2018-01-15 16:02] VITALS: BP 104/61
[2018-01-15 21:00] VITALS: BP 120/76
[2018-01-16 04:15] LABS: HEMATOCRIT 39.3 % (37.0-47.0); HEMOGLOBIN 13.4 gm/dL (12.0-15.0); MCH 31.6 pg (26.0-34.0); MCHC 34.2 g/dL (28.0-37.0); MCV 92.6 fL (80.0-100.0); MPV 8.5 fl. (7.2-11.1); RBC 4.24 mil/uL (4.20-5.00); RDW-CV 13.7 % (10.5-14.5); WBC 4.9 thou/uL (4.0-11.0)
[2018-01-16 04:23] LABS: CALCIUM 9.1 mg/dL (8.5-10.1); POTASSIUM 4.2 mmol/L (3.5-5.1)
--- NOTE | 2018-01-16 05:13 | NUR ---
PATIENT ALERT AND ORIENTED. VITALS STABLE. RA. TAN TO DEPENDENT DRAINAGE. REPOSTIONED EVERY TWO HOURS. DENIES PAIN. SLEPT COMFORTABLY THROUGH THE NIGHT. HOURLY ROUDNS. BED ALARM IN USE. NURSING WILL CONTINUE TO MONITOR.
[2018-01-16 08:15] VITALS: BP 124/62
--- NOTE | 2018-01-16 15:44 | NUR ---
[facility] STILL WAITING ON AUTHORIZATION FROM [employer] HALI,RN AND PT.NOTIFIED. NOTIFIED.
--- NOTE | 2018-01-16 16:37 | NUR ---
PATIENT REMAINS ALERT AND ORIENTED. DENIES PAIN. UP TO CHAIR. PARTICIPATED WITH PT/OT. AWAITING SNF PLACEMENT. IV SALINE LOCKED. BM YESTERDAY. CALL LIGHT WITHIN REACH. WILL CONTINUE TO MONITOR.
[2018-01-16 17:43] VITALS: BP 102/66
[2018-01-16 22:00] VITALS: BP 116/70
[2018-01-17 04:29] LABS: HEMATOCRIT 37.1 % (37.0-47.0); HEMOGLOBIN 12.8 gm/dL (12.0-15.0); MCH 31.9 pg (26.0-34.0); MCHC 34.5 g/dL (28.0-37.0); MCV 92.3 fL (80.0-100.0); MPV 8.7 fl. (7.2-11.1); RBC 4.02 mil/uL (4.20-5.00); RDW-CV 13.5 % (10.5-14.5); WBC 6.3 thou/uL (4.0-11.0)
[2018-01-17 04:31] LABS: CREATININE 0.9 mg/dL (0.6-1.3); POTASSIUM 3.7 mmol/L (3.5-5.1)
--- NOTE | 2018-01-17 05:05 | NUR ---
PATIENT ALERT AND ORIENTED. VITALS STABLE. RA. REPOSITIONED THROUGH THE NIGHT. DENIES THE NEED FOR PAIN MEDICATION. TAN TO DEPENDENT DRAINAGE. SLEPT COMFORTABLY THROUGH THE NIGHT. BED ALARM IN USE. HOURLY ROUNDS. NURSING WILL CONTINUE TO MONITOR.
[2018-01-17 08:09] VITALS: BP 126/71
[2018-01-17 08:15] VITALS: BP 126/71
--- NOTE | 2018-01-17 08:42 | NUR ---
CALL FROM MARY/[facility]. THEY HAVE RECEIVED AUTH ON PT.AND CAN ACCEPT HER TO A SNF BED. NOTIFIED NSG.UNIT AND . DISCHARGE ORDERS ON CHART. WILL CALL [facility] TO ARRANGE TRANSPORTATION AFTER SEES THIS AM.
[2018-01-17 12:57] VITALS: BP 97/75
[2018-01-17 13:38] VITALS: BP 97/75
--- NOTE | 2018-01-17 14:30 | NUR ---
PATIENT LEFT UNIT BY WHEELCHAIR WITH NURSING STAFF. IV DC'D. EDUCATED PATIENT ON DISCHARGE INSTRUCTIONS. PATIENT VERBALIZED UNDERSTANDING. CALLED [facility] AND GAVE REPORT TO NURSE. ALL BELONGINGS LEFT WITH PATIENT.
== END 2018-01-17 14:39 | disposition home or self-care (01) | DRG 292 ==
LOC: M.ERS 03:56 → M.TBA-ER 06:03 → M.ORTHSURG 06:03
PROVIDERS: Emergency Medicine; Family Medicine; ADMIT Internal Medicine
DX: I50.43 Acute on chronic combined systolic (congestive) and diastolic (congestive) heart failure (principal); E44.1 Mild protein-calorie malnutrition; I25.10 Atherosclerotic heart disease of native coronary artery without angina pectoris; K21.9 Gastro-esophageal reflux disease without esophagitis; M51.37 Other intervertebral disc degeneration, lumbosacral region; R26.81 Unsteadiness on feet; M54.16 Radiculopathy, lumbar region; M41.9 Scoliosis, unspecified; Z79.899 Other long term (current) drug therapy; Z82.49 Family history of ischemic heart disease and other diseases of the circulatory system; Z90.710 Acquired absence of both cervix and uterus; Z90.49 Acquired absence of other specified parts of digestive tract; Z68.27 Body mass index [BMI] 27.0-27.9, adult

== ENCOUNTER 2018-04-25 10:03 | Observation (INO) | payer BC ==
[~2018-04-25] VITALS: Ht 152.4 cm; Wt 60.3 kg
[2018-04-25 10:07] VITALS: BP 119/73
[2018-04-25 10:35] LABS: HEMOGLOBIN 12.4 gm/dL (12.0-15.0); MCH 31.3 pg (26.0-34.0); MCHC 32.7 g/dL (28.0-37.0); MCV 95.8 fL (80.0-100.0); NUCLEATED RBCS 0 /100WBC; PLATELET COUNT* 89 thou/uL (150-400); RBC 3.97 mil/uL (4.20-5.00); RDW-CV 14.3 % (10.5-14.5)
[2018-04-25 10:40] LABS: APTT 28.9 Seconds (25.0-31.3); INR 1.1
[2018-04-25 10:42] LABS: ANION GAP 8 mmol/L (7-16); BUN 29 mg/dL (7-18); CALCIUM 9.3 mg/dL (8.5-10.1); CHLORIDE 100 mmol/L (98-107); CO2 28 mmol/L (21-32); CREATININE 1.4 mg/dL (0.6-1.3); GLUCOSE 89 mg/dL (70-99); POTASSIUM 4.6 mmol/L (3.5-5.1); SODIUM 136 mmol/L (136-145)
[2018-04-25 11:02] LABS: ALBUMIN 3.8 g/dL (3.4-5.0); ALKALINE PHOSPHATASE 86 U/L (46-116); CK-MB MASS 1.7 ng/mL (<0.5-3.6); LIPASE 153 U/L (73-393); MAGNESIUM 2.2 mg/dL (1.8-2.4); NT-PRO BRAIN NAT PEPTIDE 11221 pg/mL (<300); SGOT 25 U/L (15-37); SGPT 16 U/L (30-65); TOTAL BILIRUBIN 0.9 mg/dL (<0.1-1.0); TOTAL PROTEIN 7.3 g/dL (6.4-8.2); TROPONIN-I LEVEL <0.06 ng/mL (<0.06)
[2018-04-25 11:22] LABS: ABSOLUTE EOSINOPHILS 0.2 thou/uL (0.0-0.7); ABSOLUTE LYMPHOCYTES 0.6 thou/uL (0.8-5.3); ABSOLUTE NEUTROPHILS 3.3 thou/uL (1.6-8.1)
[2018-04-25 11:23] LABS: PLATELET ESTIMATE DECREASED; POIKILOCYTOSIS Occasional
[2018-04-25 14:21] VITALS: BP 117/63
--- NOTE | 2018-04-25 14:55 | NUR ---
er admit report given patient to 205 via cart patient oriented to , call light patient settled and comfortable in denies pain call light in reCH Nnd bed alarmn on
[2018-04-25 15:00] VITALS: BP 132/73
[2018-04-25 19:50] VITALS: BP 102/66
[2018-04-26] VITALS (7 sets, daily range): BP systolic 105–125; BP diastolic 60–105
[2018-04-26 04:25] LABS: ABSOLUTE EOSINOPHILS 0.3 thou/uL (0.0-0.7); ABSOLUTE LYMPHOCYTES 0.8 thou/uL (0.8-5.3); ABSOLUTE MONOCYTES 0.6 thou/uL (0.0-1.2); ABSOLUTE NEUTROPHILS 2.4 thou/uL (1.6-8.1); BASOPHILS 0.8 %; EOSINOPHILS 8.1 %; HEMATOCRIT 37.6 % (37.0-47.0); HEMOGLOBIN 12.4 gm/dL (12.0-15.0); LYMPHOCYTES 19.5 %; MCH 31.6 pg (26.0-34.0); MCV 95.9 fL (80.0-100.0); MONOCYTES 13.7 %; MPV 8.5 fl. (7.2-11.1); NUCLEATED RBCS 0 /100WBC; PLATELET COUNT* 88 thou/uL (150-400); POLYS 57.9 %; RBC 3.92 mil/uL (4.20-5.00); RDW-CV 14.2 % (10.5-14.5); WBC 4.2 thou/uL (4.0-11.0)
[2018-04-26 04:41] LABS: CALCIUM 9.1 mg/dL (8.5-10.1); CREATININE 1.2 mg/dL (0.6-1.3); POTASSIUM 4.3 mmol/L (3.5-5.1)
--- NOTE | 2018-04-26 06:08 | NUR ---
A&O X4 CALM COOPERITVE. 1ST SR ON THE MONITOR. X1 ASSIST WITH WALKER. 2L O2. VITALS WNL. SEE MAR. SEE CHARTING. FALL PRECAUTIONS IN PLACE. HOURLY ROUNDING FOR SAFETY.
--- NOTE | 2018-04-26 09:10 | NUR ---
ASSUMED CARE OF PT THIS AM AROUND 07- HOUSE PARENT IN PLACE ORDERED, TRACING SB WITH 1ST DEGREE- UPON ASSESSMENT PT NOTED TO BE RESTING IN BED- PT A&O X4, YUROK- CONTINENT OF BOWEL AND BLADDER, WITH NOTED STRESS INCONTINENTS- ASSIST X1 WITH RW WITH TRANSFERS- LCTA, DIMINISHED IN BASES- RESP EVEN AND VI-EFUFODR-EGB, O2 SAT 94% ON 2L VIA NC- ABDOMEN SOFT/ROUND/NON-TENDER, BS X4 QUADS- PT REPORTS TO HAVE HAD LAST BM 04/25/18- 1+ BL ANKLE EDEAM NOTED- IV NOTED TO RIGHT FA INTACT AND SL- UP TO CHAIR THIS AM- CURRENLTY NPO PENDING CARDIOLOGY CONSULT- DENIES ANY C/O PAIN/DISCOMFORT AT THIS TIME- CALL LIGHT AND PERSONAL BELONGINGS WITH IN REACH- HOURLY ROUNDS IN PLACE R/T SAFETY/NEEDS- ALL NEEDS MET AT THIS TIME-WCTM
--- NOTE | 2018-04-26 12:55 | EKG ---
[place] [address] ELECTROCARDIOGRAM REPORT Name: MICHAEL NAVARRO Room: [address] IN [facility]#: [id number] Admission: 04/25/18 Attend Phys: Kenneth Fisher MD Discharge: Date of : 37 Report #: [id number] THIS REPORT FOR: //name// [facility] ED Test Date: 2018-04-25 Test Time: 10:09:41 Pat Name: MICHAEL NAVARRO Department: Room: Gender: Stenographer Secretary: Fredy PRYOR : 1935 Requested By: Ulisses Green Order Number: [id number] MD: Paul Castaneda Measurements Intervals [place] Rate: 64 P: 41 ND: 262 QRS: 222 QRSD: 115 T: 24 QT: 473 QTc: 488 Interpretive Statements Sinus rhythm Prolonged [place] interval Probable left atrial enlargement Nonspecific intraventricular conduction delay Anterior infarct, old Compared to ECG 01/12/2018 04:15:36 Ventricular premature complex(es) no longer present Myocardial infarct finding still present Electronically Signed On 04-26-2018 12:55:21 CDT by Paul Castaneda [email or web address] <ELECTRONICALLY SIGNED> By: Paul Castaneda MD, [facility] 04/26/18 1255 1009 1009 Paul Castaneda MD, [facility] /EPI
--- NOTE | 2018-04-26 15:08 | NUR ---
ORDERS RECIEVED THIS SHIFT FOR OKAY TO D/C HOME PER IF OKAY WITH CARDIOLOGY- L.CASE, BACK TENDER CYLINDER HERE TO ASSESS WITH OKAY TO D/C WELL WITH HOME ATENOLOL TO D/C WITH FOLLOW UP WITH OWN MARKETING RESEARCHER IN 2 WEEKS- IV TO RIGHT FA D/C'D ALONG WITH CADIAC MONITOR MONITOR PRIOR TO D/C- D/C TEACHING/EDUCATION GIVEN TO PT AND DAUGHTER WITH ALL QUESTIONS AND CONCERNS ADDRESSED PRIOR TO D/C-COMMUNICATION GIVEN TO PT ABOUT ATENOLOL NOTED TO BE D/C'D THIS ADMISSION WITH, WITH VERBAL UNDERSTAINDING RECIEVED-WRITTEN EDUCATION PROVIDED TO PT DAUGHTER AT TIME OF D/C- BELONGINGS PACKED AND ACOCUNTED FOR PER PT AND DAUGHTER- PT ESCORTED PER TECH WITH BELONGINGS; DAUGHTER AT SIDE TO VEHICLE AT 1515- NO PROBLEMS TO NOTE AT TIME OF D/C
== END 2018-04-26 15:15 | disposition home health service (06) ==
LOC: M.ERS 10:03 → M.2W 12:33 → M.TBA-ER 12:33 → M.2W 14:43
PROVIDERS: Family Medicine; ADMIT Internal Medicine
DX: I48.0 Paroxysmal atrial fibrillation (principal); R42 Dizziness and giddiness; M19.90 Unspecified osteoarthritis, unspecified site; I10 Essential (primary) hypertension; D69.6 Thrombocytopenia, unspecified; E46 Unspecified protein-calorie malnutrition; I25.2 Old myocardial infarction; Z90.710 Acquired absence of both cervix and uterus; Z90.49 Acquired absence of other specified parts of digestive tract; Z98.890 Other specified postprocedural states

== ENCOUNTER 2018-08-13 09:41 | Inpatient (IN) | payer BC ==
[~2018-08-13] VITALS: Ht 152.4 cm; Wt 59.9 kg
[2018-08-13 09:43] VITALS: BP 129/77
[2018-08-13 10:14] LABS: ABSOLUTE EOSINOPHILS 0.1 thou/uL (0.0-0.7); ABSOLUTE NEUTROPHILS 3.2 thou/uL (1.6-8.1); BASOPHILS 0.7 %; EOSINOPHILS 1.8 %; HEMATOCRIT 39.6 % (37.0-47.0); HEMOGLOBIN 13.2 gm/dL (12.0-15.0); LYMPHOCYTES 18.5 %; MCH 31.7 pg (26.0-34.0); MCHC 33.3 g/dL (28.0-37.0); MCV 95.3 fL (80.0-100.0); MONOCYTES 19.3 %; MPV 8.7 fl. (7.2-11.1); NUCLEATED RBCS 0 /100WBC; PLATELET COUNT* 93 thou/uL (150-400); POLYS 59.7 %; RBC 4.15 mil/uL (4.20-5.00); RDW-CV 14.2 % (10.5-14.5); WBC 5.3 thou/uL (4.0-11.0)
[2018-08-13 10:28] LABS: ANION GAP 10 mmol/L (7-16); BUN 16 mg/dL (7-18); CALCIUM 8.9 mg/dL (8.5-10.1); CHLORIDE 98 mmol/L (98-107); CO2 26 mmol/L (21-32); CREATININE 1.2 mg/dL (0.6-1.3); GLUCOSE 109 mg/dL (70-99); POTASSIUM 3.9 mmol/L (3.5-5.1); SODIUM 134 mmol/L (136-145)
[2018-08-13 10:38] LABS: ALBUMIN 3.6 g/dL (3.4-5.0); ALKALINE PHOSPHATASE 82 U/L (46-116); LIPASE 96 U/L (73-393); MAGNESIUM 1.7 mg/dL (1.8-2.4); NT-PRO BRAIN NAT PEPTIDE 19494 pg/mL (<300); SGOT 20 U/L (15-37); SGPT 11 U/L (30-65); TOTAL BILIRUBIN 1.8 mg/dL (<0.1-1.0); TOTAL PROTEIN 7.2 g/dL (6.4-8.2); TROPONIN-I LEVEL <0.06 ng/mL (<0.06)
--- NOTE | 2018-08-13 13:08 | NUR ---
PT WAS HELPED TO BEDSIDE COMMADE, AND PT IS EATING LUNCH
--- NOTE | 2018-08-13 14:29 | NUR ---
PT NOTED TO HAVE LOW BP, DR. LO NOTIFIED, ORDERS RECIEVED
[2018-08-13 14:56] VITALS: BP 77/48
--- NOTE | 2018-08-13 17:54 | EKG ---
[place] [address] ELECTROCARDIOGRAM REPORT Name: MICHAEL NAVARRO Room: [address] ADM IN M.R.#: [id number] Admission: 08/13/18 Attend Phys: Andrea Mckee Discharge: Date of : 37 Report #: [id number] THIS REPORT FOR: //name// [facility] ED Test Date: 2018-08-13 Test Time: 09:56:04 Pat Name: MICHAEL NAVARRO Department: Room: [facility] Gender: F Tunnel Heading Supervisor: Fredy PRYOR : 1935 Requested By: Acosta Chopra Order Number: [id number] MD: Jun Del Real Measurements Intervals [place] Rate: 80 P: 54 FL: 234 QRS: 260 QRSD: 132 T: 31 QT: 426 QTc: 492 Interpretive Statements Sinus rhythm Ventricular trigeminy Prolonged [place] interval Nonspecific IVCD with LAD Possible anteroseptal infarct, old Low voltage limb leads Artifact in lead(s) V4 Compared to ECG 04/25/2018 10:09:41 Ventricular premature complex(es) now present Myocardial infarct finding still present Electronically Signed On 08-13-2018 17:54:00 CDT by Jun Del Real [email or web address] <ELECTRONICALLY SIGNED> By: Jun Del Real MD, FACC 08/13/18 1754 5 5 Jun Del Real MD, FACC /EPI
--- NOTE | 2018-08-13 18:56 | NUR ---
PATINET RESTING IN BED. UP WITH STANDBY ASSIST. VITAL SIGNS STABLE. HOURLY ROUNDING COMPLETED FOR PATINET SAFETY.
[2018-08-13 19:40] VITALS: BP 90/62
[2018-08-14] VITALS: BP 80/48
[2018-08-14 04:00] VITALS: BP 84/49
--- NOTE | 2018-08-14 05:10 | NUR ---
CARE ASSUMMED RESP REG AND UNLABORED SKIN W/D MARIA E CUTE DISTRESS NOTED. TELEMETRY PACK INTACT WITH ALARMS SET. PT HAD AN UNEVENTFUL NIGHT. VSS AND NO ACUTE CHANGES DURIGN SHIFT. PT DENIES SOB AND CHEST DISCOMFORT. WILL CONTINUE TO MONITOR
[2018-08-14 08:00] VITALS: BP 111/63
[2018-08-14 11:50] VITALS: BP 92/59
--- NOTE | 2018-08-14 14:42 | NUR ---
Pt is A&O. Resides at [facility]. Pt completes IADLS, requries SBA with showers, but able to dress self. [facility] provides meals, laundry services and medication management. Pt uses a walker for mobility, also has a cane. [facility] of [facility]. Hx of skilled at [facility]. Pt scheduled to have a stress test today at 3pm, possible dc afterwards. No needs anticipated. Pt stated "they take really good care of me at the [facility]." Sister in Law, Vivi Mcdaniels [phone], will provide dc transportation.
--- NOTE | 2018-08-14 18:11 | EKG ---
[place] [address] ELECTROCARDIOGRAM REPORT Name: MICHAEL NAVARRO Room: [address] ADM IN M.R.#: [id number] Admission: 08/13/18 Attend Phys: Andrea Mckee Discharge: Date of : 37 Report #: [id number] THIS REPORT FOR: //name// [facility] ED Test Date: 2018-08-13 Test Time: 14:30:12 Pat Name: MICHAEL NAVARRO Department: Room: [address] Gender: F Entrepreneur: Fredy PRYOR : 1935 Requested By: Tania So Order Number: [id number] Radha MD: Jun Del Real Measurements Intervals [place] Rate: 82 P: 43 MN: 240 QRS: 235 QRSD: 106 T: 35 QT: 426 QTc: 498 Interpretive Statements Sinus rhythm Prolonged [place] interval PVC Possible left atrial enlargement Low voltage, extremity leads Anteroseptal infarct, old Compared to ECG 08/13/2018 09:56:04 Intraventricular conduction delay no longer present Myocardial infarct finding still present Electronically Signed On 08-14-2018 18:11:31 CDT by Jun Del Real [email or web address] <ELECTRONICALLY SIGNED> By: Jun Del Real MD, FACC 08/14/18 1811 1430 1430 Jun Del Real MD, FACC /EPI
--- NOTE | 2018-08-14 18:58 | NUR ---
PATINET RESTING IN BED. UP WITH ASSIST X1 AND WALKER. STRESS TESTIN GTOMORROW. HOURLY ROUNDING FOR PATIENT SAFETY.
[2018-08-14 20:00] VITALS: BP 120/73
[2018-08-15] VITALS: BP 105/68
--- NOTE | 2018-08-15 03:11 | NUR ---
ASSUMED PT CARE AT 1930. ASSESSMENT COMPLETED CHARTED. ABLE TO MAKE NEEDS KNOWN. PT RESTING IN BED THIS SHIFT. NO C/O PAIN OR DISCOMFORT AT THIS TIME. NPO AT MIDNIGHT FOR 2ND PART OF STRESS TEST TODAY. WILL CONTINUE TO MONITOR.
[2018-08-15 04:00] VITALS: BP 113/68
[2018-08-15 04:58] LABS: HEMATOCRIT 39.1 % (37.0-47.0); HEMOGLOBIN 13.2 gm/dL (12.0-15.0); MCH 31.9 pg (26.0-34.0); MCHC 33.8 g/dL (28.0-37.0); MCV 94.4 fL (80.0-100.0); MPV 9.1 fl. (7.2-11.1); RBC 4.14 mil/uL (4.20-5.00); RDW-CV 13.6 % (10.5-14.5); WBC 5.6 thou/uL (4.0-11.0)
[2018-08-15 05:19] LABS: CALCIUM 8.1 mg/dL (8.5-10.1); MAGNESIUM 1.7 mg/dL (1.8-2.4); POTASSIUM 3.9 mmol/L (3.5-5.1); TOTAL BILIRUBIN 1.1 mg/dL (<0.1-1.0); TOTAL PROTEIN 5.9 g/dL (6.4-8.2)
[2018-08-15 08:00] VITALS: BP 101/72
[2018-08-15 12:00] VITALS: BP 115/71
--- NOTE | 2018-08-15 12:06 | NUR ---
PT ALERT, ORIENTED AND ALL VSS ON ROOM AIR. PT NPO START OF SHIFT FOR STRESS. TELE TRACKING NSR WITH 1ST AVB. DENIES CP, SOA. EDUCATED ON SAFETY AND PLAN OF CARE. PLEASE SEE ASSESSMENT FOR ADDITIONAL INFORMATION. WILL CONTINUE TO MONITOR
[2018-08-15] MEDS ORDERED: ASA5UEC PO (16:19)
[2018-08-15] MEDS ORDERED: LIDOCAINE35.44 GM (16:28)
[2018-08-15] MEDS ORDERED: MENTHOLATUM TOP (16:32)
--- NOTE | 2018-08-15 16:58 | CARDNUC ---
[place] [address] CARDIAC NUCLEAR IMAGING REPORT Name: MICHAEL NAVARRO Room: [address] IN [facility]#: [id number] Admission: 08/13/18 Attend Phys: Tania So Discharge: Date of : 37 Date of Service: 08/15/18 1657 Report #: [id number] THIS REPORT FOR: //name// APPROVED REPORT Imaging Protocol: Rest Tc-99m/Stress Tc-99m 2 days Study performed: 08/14/2018 12:33:00 Indication: Chest pain, Dyspnea Patient Location: In-Patient Room #: [facility] Stress Tech: Lee Ann Longo Stress Nurse: Abby Gonzales RN NM Tech:SANTA Pace Ht: 5 ft 0 in Wt: 132 lbs BSA: 1.56 m2 BMI: 25.77 Medical History Medical History: Angina, SOB, Possible HX [place], , Hyperlipidemia, HTN Medications: ASA 325 MG, Lasix, Accupril, Simvastatin Allergies: No known drug allergies Cardiac Risk Factors: Age, HTN, Hyperlipidemia, FHX of CAD Previous Cardiac Procedures: Possible HX of [place] Pretest Chest Pain Characteristics: No chest pain Exercise History: Sedentary Physical Disabilities: Use Walker to ambulate r/t generalized weakness Resting Data Rest SPECT myocardial perfusion imaging was performed in supine position 30 minutes following the intravenous injection of 10.3 mCi of Tc-99m Sestamibi. Time of rest injection: 1445 Date: 08/14/2018 Time of rest imagin The images were gated to evaluate regional wall motion and calculate left ventricular ejection fraction. Administration Route: IV Administration Site: Right Arm Pharmacologic Stress Pharmacologic stress test was performed by injecting Regadenoson 0.4 mg IV push over 10-15 seconds immediately followed by the intravenous injection of 32.1 mCi of Tc-99m [place] [address] CARDIAC NUCLEAR IMAGING REPORT Name: MICHAEL NAVARRO Room: [address] IN [facility]#: [id number] Admission: 08/13/18 Attend Phys: Tania So Discharge: Date of : 37 Date of Service: 08/15/18 1657 Report #: [id number] Time of stress injection: 0855 Date: 08/15/2018 Time of stress imagin Administration Route: IV Administration Site: Right Arm Gated Stress SPECT was performed 40 minutes after stress injection. The images were gated to evaluate regional wall motion and calculate left ventricular ejection fraction. Prone imaging was performed. Stress Test Details Stress Test: Pharmacologic stress testing performed using 0.4 mg of regadenoson per 5 mL given IV over 10 seconds. Reason for pharmacologic stress test: physical limitation, Uses walker to ambulate.. HR Max Heart Rate (APMHR): 139 bpm Resting HR: 60 bpm Target HR (85% APMHR): 118 bpm Max HR Achieved: 85 bpm % of APMHR: 61 Recovery HR: 76 bpm BP Resting BP: 128/90 mmHg Recovery BP: 116/78 mmHg ECG Resting ECG: Sinus Rhythm Stress ECG: Sinus Rhythm ST Change: None Arrhythmia: APC's, VPC's Recovery ECG: Sinus Rhythm Recovery ST Change: None Recovery Arrhythmia: APC, VPC Clinical Reason for Termination: Completed protocol Stress Symptoms: Nausea, Hot flash Exercise duration: 0 min 0 sec Exercise capacity: 1.00 METs The patient tolerated Lexiscan infusion without significant symptoms. Nurse Comments Patient tolerated sitting lexiscan well with minimal side effects reported. Patient uses walker/wheelchair to ambulate, [place] [address] CARDIAC NUCLEAR IMAGING REPORT Name: MICHAEL NAVARRO Room: [address]#: [id number] Admission: 08/13/18 Attend Phys: Tania So Discharge: Date of : 37 Date of Service: 08/15/18 1657 Report #: [id number] for treadmill. Patient escorted to Nuclear Medicine for images by staff via wheelchair, patient stable with no complaints at that time. Stress ECG Conclusion The baseline 12-lead EKG shows sinus rhythm with frequent premature atrial and premature ventricular contractions. EKGs obtained during and post Lexiscan infusion show sinus rhythm with continued frequent ectopy. Study Quality Study: Fair Artifact: Moderate Diaphragmatic artifact Study Data At rest, the left ventricular ejection fraction was 61%.. Post stress, the left ventricular ejection was 71%.. Perfusion Images obtained in the supine position at rest and post Lexiscan stress show moderately photopenia involving the entire inferior wall that resolves completely with post stress prone imaging suggesting significant diaphragmatic attenuation artifact. No other significant fixed or reversible defects identified. Wall Motion Normal left ventricular wall motion. Nuclear Conclusion ECG Findings: negative for ischemia Clinical Findings: negative for ischemia Nuclear Findings: negative for ischemia Exercise Capacity: not assessed Left Ventricular Function: normal Risk Study: low Myocardial perfusion images show no defect to suggest infarct or ischemia. Left ventricular systolic function appears normal on gated studies. This is a low risk study. <Conclusion> The baseline 12-lead EKG shows sinus rhythm with frequent premature atrial and premature ventricular contractions. [place] [address] CARDIAC NUCLEAR IMAGING REPORT Name: MICHAEL NAVARRO Room: [address] [facility]#: [id number] Admission: 08/13/18 Attend Phys: Tania So Discharge: Date of : 37 Date of Service: 08/15/18 1657 Report #: [id number] and post Lexiscan infusion show sinus rhythm with continued frequent ectopy. <ELECTRONICALLY SIGNED> By: Jun Del Real MD, FACC 08/15/181656 56 56 Jun Del Real MD, FACC /INF
[2018-08-15 17:06] VITALS: BP 120/73
== END 2018-08-15 18:18 | disposition home or self-care (01) | DRG 302 ==
LOC: M.ERS 09:41 → M.TBA-ER 11:14 → M.2W 11:14
PROVIDERS: Emergency Medicine Emergency Medical Services; ADMIT Internal Medicine
DX: I25.119 Atherosclerotic heart disease of native coronary artery with unspecified angina pectoris (principal); I50.33 Acute on chronic diastolic (congestive) heart failure; I48.0 Paroxysmal atrial fibrillation; E78.5 Hyperlipidemia, unspecified; I73.9 Peripheral vascular disease, unspecified; M81.0 Age-related osteoporosis without current pathological fracture; M79.18 Myalgia, other site; G60.9 Hereditary and idiopathic neuropathy, unspecified; I11.0 Hypertensive heart disease with heart failure; M19.90 Unspecified osteoarthritis, unspecified site; I95.9 Hypotension, unspecified; Z79.82 Long term (current) use of aspirin; Z79.899 Other long term (current) drug therapy; Z90.89 Acquired absence of other organs; Z90.710 Acquired absence of both cervix and uterus; I25.2 Old myocardial infarction; Z82.49 Family history of ischemic heart disease and other diseases of the circulatory system; Z91.81 History of falling

== ENCOUNTER → 2019-02-20 | Outpatient (CLI) | payer BC ==
[~2019-02-20] MED LIST changes: +LIDOCAINE35.44 GM; +MENTHOLATUM TOP
== END ==
LOC: M.ULTRA 09:30
DX: D69.6 Thrombocytopenia, unspecified (principal); I13.0 Hypertensive heart and chronic kidney disease with heart failure and stage 1 through stage 4 chronic kidney disease, or unspecified chronic kidney disease; N18.3 Chronic kidney disease, stage 3 (moderate); I50.33 Acute on chronic diastolic (congestive) heart failure; M81.0 Age-related osteoporosis without current pathological fracture; E78.5 Hyperlipidemia, unspecified; E66.3 Overweight; I48.0 Paroxysmal atrial fibrillation; Z68.29 Body mass index [BMI] 29.0-29.9, adult

== ENCOUNTER → 2019-02-26 | Outpatient (CLI) | payer BC ==
[2019-02-26 11:23] LABS: HEMATOCRIT 40.2 % (37.0-47.0); HEMOGLOBIN 13.6 gm/dL (12.0-15.0); MCH 32.4 pg (26.0-34.0); MCHC 33.9 g/dL (28.0-37.0); MCV 95.7 fL (80.0-100.0); MPV 9.3 fl. (7.2-11.1); NUCLEATED RBCS 0 /100WBC; PLATELET COUNT* 91 thou/uL (150-400); RDW-CV 14.2 % (10.5-14.5); WBC 4.2 thou/uL (4.0-11.0)
[2019-02-26 11:35] LABS: ALBUMIN 4.1 g/dL (3.4-5.0); CALCIUM 8.8 mg/dL (8.5-10.1); CREATININE 1.4 mg/dL (0.6-1.3); POTASSIUM 4.3 mmol/L (3.5-5.1); TOTAL BILIRUBIN 1.1 mg/dL (<0.1-1.0); TOTAL PROTEIN 7.5 g/dL (6.4-8.2)
[2019-02-26 11:51] LABS: ABSOLUTE EOSINOPHILS 0.1 thou/uL (0.0-0.7); ABSOLUTE MONOCYTES 0.4 thou/uL (0.0-1.2); ABSOLUTE NEUTROPHILS 2.7 thou/uL (1.6-8.1)
[2019-02-26 11:52] LABS: PLATELET ESTIMATE DECREASED
[2019-02-26 11:53] LABS: GIANT PLATELETS RARE; LARGE PLATELETS FEW
[2019-02-26 21:10] LABS: HEMOGLOBIN 13.3 g/dL (11.1-15.9)
[2019-02-27 07:11] LABS: HEPATITIS B SURFACE AG Negative (Negative)
--- NOTE | 2019-02-27 13:01 | HEMONC ---
[address] [address] HEMATOLOGY ONCOLOGY NOTE Name: RAMONMICHAEL Stewart Room: [facility]#: [id number] Admission: 02/26/19 Attend Phys: Lashonda Sanchez MD Discharge: Date of : 37 Report #: [id number] THIS REPORT FOR: //name// CC: Brittney Sanchez DATE OF SERVICE: 02/26/2019 REFERRING PHYSICIAN: Dr. Mcdaniels. REASON FOR CONSULTATION: Thrombocytopenia. SUBJECTIVE: An 83-year-old female was evaluated because of new findings on her routine CBC with low thrombocytopenia. On the labs on 02/14/2019, platelet count was 86,000. However, her WBC and hemoglobin remains within normal range. The patient denies any new medications. No nausea, vomiting or abdominal pain. The patient denies any new infection. The patient denies any new medications, herbal medications or [id number]. The patient denies any epistaxis, gum bleed, hematuria. She had a recent ultrasound on 02/20/2019 which came back completely normal. REVIEW OF SYSTEMS: All systems reviewed, was negative except for the above. PAST MEDICAL HISTORY: Osteoporosis, hypertension, heart failure, paroxysmal atrial fibrillation. MEDICATIONS: Aspirin 81 mg p.o. daily, calcium supplement, fish oil, Lasix 20 mg p.o. daily. lisinopril 5 mg p.o. daily, omeprazole 20 mg p.o. daily, simvastatin 40 mg p.o. daily. SOCIAL HISTORY: No smoking, no alcohol abuse, no drug abuse. FAMILY HISTORY: Mother with pancreatic cancer. PAST SURGICAL HISTORY: Appendectomy, bladder augmentation, brain surgery, hip fracture surgery, tonsillectomy, LISANDRO and tubal ligation. ALLERGIES: No known allergies. PHYSICAL EXAMINATION: VITAL SIGNS: Blood pressure is 103/75, pulse is 56, respirations 18, temperature is 97.4. GENERAL: The patient was sitting in chair, was not in acute distress. LUNGS: Clear to auscultation bilaterally. HEART: Regular rate and rhythm. S1, S2 within normal limits. ABDOMEN: Soft, nontender, nondistended, [place] [address] HEMATOLOGY ONCOLOGY NOTE Name: RAMONMICHAEL Terry Room: [facility]#: [id number] Admission: 02/26/19 Attend Phys: Lashonda Sanchez MD Discharge: Date of : 37 Report #: [id number] EXTREMITIES: No edema, no cyanosis, no clubbing. ASSESSMENT AND PLAN: An 83-year-old female who is being evaluated because of an isolated moderate thrombocytopenia. She had normal hemoglobin and WBC. Previously back in 2018, her platelet count was 129. At this point, the patient remains totally asymptomatic with no any signs of bleeding. RECOMMENDATIONS: 1. I would like to repeat her CBC with heparin and citrate to avoid clumping. We will obtain a B12, folate, LDH, haptoglobin, Eitan test and peripheral blood smear. Also, we will obtain a hepatitis panel. The patient already had an ultrasound, which was negative for any liver disease or for any hepatosplenomegaly. We will follow up based on her labs. <ELECTRONICALLY SIGNED> By: Lashonda Sanchez MD 02/27/19 1301 1028 [id number] Sanchez MD /nt
== END ==
LOC: M.RTH 08:30
PROVIDERS: Internal Medicine
DX: D69.6 Thrombocytopenia, unspecified (principal); M81.0 Age-related osteoporosis without current pathological fracture; I11.0 Hypertensive heart disease with heart failure; I50.9 Heart failure, unspecified; I48.0 Paroxysmal atrial fibrillation; Z79.899 Other long term (current) drug therapy; Z90.49 Acquired absence of other specified parts of digestive tract

== ENCOUNTER 2019-06-12 20:35 | Emergency (ER) | payer BC ==
[~2019-06-12] VITALS: Ht 152.4 cm; Wt 56.7 kg
[2019-06-12] MEDS ORDERED: CALCIUM 600 +1 EAC1 PO (20:46)
[2019-06-12] MEDS ORDERED: NORCO 5-325 TA1 EAC1 PO (20:46)
[2019-06-12] MEDS ORDERED: TYLENOL325 MG PO (20:46)
[2019-06-12 21:33] LABS: ABSOLUTE EOSINOPHILS 0.1 thou/uL (0.0-0.7); ABSOLUTE LYMPHOCYTES 0.9 thou/uL (0.8-5.3); ABSOLUTE MONOCYTES 0.6 thou/uL (0.0-1.2); ABSOLUTE NEUTROPHILS 2.5 thou/uL (1.6-8.1); BASOPHILS 0.8 %; EOSINOPHILS 2.8 %; HEMATOCRIT 36.8 % (37.0-47.0); HEMOGLOBIN 12.5 gm/dL (12.0-15.0); LYMPHOCYTES 22.2 %; MCH 33.5 pg (26.0-34.0); MCHC 34.1 g/dL (28.0-37.0); MCV 98.2 fL (80.0-100.0); MONOCYTES 13.7 %; MPV 8.5 fl. (7.2-11.1); NUCLEATED RBCS 0 /100WBC; PLATELET COUNT* 77 thou/uL (150-400); POLYS 60.5 %; RBC 3.75 mil/uL (4.20-5.00); WBC 4.1 thou/uL (4.0-11.0)
[2019-06-12 21:44] LABS: ANION GAP 7 mmol/L (7-16); BUN 32 mg/dL (7-18); CALCIUM 8.4 mg/dL (8.5-10.1); CHLORIDE 100 mmol/L (98-107); CO2 27 mmol/L (21-32); CREATININE 1.6 mg/dL (0.6-1.3); GLUCOSE 113 mg/dL (70-99); POTASSIUM 4.1 mmol/L (3.5-5.1); SODIUM 134 mmol/L (136-145)
[2019-06-12 21:54] LABS: URINE BILIRUBIN NEGATIVE (Negative); URINE BLOOD NEGATIVE (Negative); URINE CLARITY CLEAR; URINE COLOR YELLOW; URINE GLUCOSE-RANDOM NEGATIVE (Negative); URINE KETONES NEGATIVE (Negative); URINE LEUKOCYTES-REFLEX NEGATIVE (Negative); URINE NITRITE-REFLEX NEGATIVE (Negative); URINE PROTEIN NEGATIVE (Negative); URINE SPECIFIC GRAVITY 1.015 (1.005-1.030)
[2019-06-12 21:55] LABS: ALBUMIN 3.6 g/dL (3.4-5.0); ALKALINE PHOSPHATASE 55 U/L (46-116); LIPASE 117 U/L (73-393); NT-PRO BRAIN NAT PEPTIDE 9918 pg/mL (<300); SGOT 23 U/L (15-37); SGPT 14 U/L (30-65); TOTAL BILIRUBIN 0.8 mg/dL (<0.1-1.0); TOTAL PROTEIN 6.7 g/dL (6.4-8.2); TROPONIN-I LEVEL <0.06 ng/mL (<0.06)
[2019-06-13 00:27] VITALS: BP 89/62
--- NOTE | 2019-06-14 10:59 | EKG ---
[place] [address] ELECTROCARDIOGRAM REPORT Name: MICHAEL NAVARRO [id number] Admission: 06/12/19 Attend Phys: Discharge: 06/13/19 Date of : 37 Report #: [id number] THIS REPORT FOR: //name// [facility] ED Test Date: 2019-06-12 Test Time: 20:40:33 Pat Name: MICHAEL WHITTAKERAMOL Department: Room: Gender: F Door Framer: ИВАН : 1935 Requested By: Mak Tamayo Order Number: [id number] MD: Scott Travis Measurements Intervals [place] Rate: 81 P: -34 FL: 89 QRS: 163 QRSD: 111 T: -5 QT: 408 QTc: 474 Interpretive Statements Sinus rhythm with first degree av block Left posterior fascicular block Low voltage, extremity leads Abnormal R-wave progression, late transition Compared to ECG 08/13/2018 14:30:12 Ventricular premature complex(es) no longer present Electronically Signed On 06-14-2019 10:58:57 CDT by Scott Travis [email or web address] <ELECTRONICALLY SIGNED> By: Scott Travis MD, [facility] 06/14/19 1058 39 39 Scott Travis MD, [facility] /EPI
== END 2019-06-13 00:15 | disposition short-term general hospital (02) ==
LOC: M.ERS 20:35
PROVIDERS: Emergency Medicine
DX: S22.20XA Unspecified fracture of sternum, initial encounter for closed fracture (principal); S50.312A Abrasion of left elbow, initial encounter; I10 Essential (primary) hypertension; I25.2 Old myocardial infarction; E78.5 Hyperlipidemia, unspecified; I73.9 Peripheral vascular disease, unspecified; G62.9 Polyneuropathy, unspecified; M81.0 Age-related osteoporosis without current pathological fracture; I25.10 Atherosclerotic heart disease of native coronary artery without angina pectoris; Z98.890 Other specified postprocedural states; Z90.49 Acquired absence of other specified parts of digestive tract; Z90.710 Acquired absence of both cervix and uterus; W18.39XA Other fall on same level, initial encounter; Y93.89 Activity, other specified; Y99.8 Other external cause status; Y92.129 Unspecified place in nursing home as the place of occurrence of the external cause